=== PATIENT | female | born 1950 | race Caucasian/White ===

== ENCOUNTER 2017-08-20 18:36 | Emergency (ER) | payer MEDICARE, OTHER | END 2017-08-20 23:31 | disposition home or self-care (01) | LOC: EEVIPCON 18:36 → ERS 18:36 | DX: E11.65 Type 2 diabetes mellitus with hyperglycemia (principal); H43.393 Other vitreous opacities, bilateral; I48.91 Unspecified atrial fibrillation; I10 Essential (primary) hypertension; Z79.4 Long term (current) use of insulin; Z79.899 Other long term (current) drug therapy; Z79.82 Long term (current) use of aspirin | CPT/HCPCS: 36416; 99283 ==

== ENCOUNTER 2017-08-23 20:50 | Emergency (ER) | payer MEDICARE, OTHER ==
[2017-08-23 21:53] LABS: #Eosinphils 0.1 thou/uL (0.0-0.7); #Lymphocytes 1.6 thou/uL (1.20-3.40); #Neutrophils 7.6 thou/uL (1.40-6.50); %Basophils 0.4 % (0.0-1.0); %Lymphocytes 15.1 % (21.0-51.0); %Neutrophils 73.6 % (42.0-75.0); Hemoglobin 12.8 g/dL (12.0-16.0); Mean Corpuscular HGB CONC 33.3 g/dL (32.0-36.0); Mean Corpuscular Hemoglobin 31.8 pg (27.0-31.0); Mean Corpuscular Volume 95.3 fl (81.0-99.0); Mean Platelet Volume 7.3 fL (7.4-10.4); Platelet Count 192 thou/uL (130-400); RBC Distribution Width 12.4 % (11.5-14.5); Red Blood Cell (RBC) Count 4.04 mill/uL (4.20-5.40); White Blood Cell (WBC) Count 10.3 thou/uL (4.8-10.8)
[2017-08-23 22:00] LABS: Bilirubin Negative (Negative); Blood, Urine Trace (Negative); Clarity CLOUDY (Clear); Glucose, Urine (Dipstick) Negative (Negative); Leukocyte Small (Negative); Nitrite Positive (Negative); Protein, Urine (Dipstick) 30 mg/dL (Neg-Trace); Specific Gravity, Urine 1.022 (1.002-1.036)
[2017-08-23 22:01] LABS: Bacteria/HPF 4+ HPF (None Seen); Hyaline Casts/LPF 0-3 HYALINE CAST LPF (0-3 Hyaline); Pathc Cast-AUWi Flag 0.72 (0-2.49); Squamous Epithelial 0-3 HPF (0-3)
[2017-08-23 22:08] LABS: RBC/HPF 0-3 HPF (0-3); Yeast-All Forms None Seen HPF (None Seen)
--- NOTE | 2017-08-23 22:10 | RAD ---
PORTABLE CHEST: 08/23/2017 PROVIDED CLINICAL HISTORY: Abdominal pain. COMPARISON: 05/14/2016 FINDINGS: The cardiac and mediastinal silhouette is within normal limits. The lungs appear clear. There is no pleural fluid or pneumothorax apparent. IMPRESSION: No evidence for an acute cardiopulmonary process. POS: [facility]
[2017-08-23 22:15] LABS: ALT (SGPT) 28 U/L (8-55); AST (SGOT) 23 U/L (5-34); Albumin 3.7 g/dL (3.4-4.8); Alkaline Phosphatase 93 U/L (40-150); Anion Gap 13 mmol/L (10-20); BUN (Urea Nitrogen) 14 mg/dL (9.8-20.1); Calc. Creatinine Clearance 0 mL/min (70-130); Calcium 9.7 mg/dL (7.8-10.44); Carbon Dioxide 25 mmol/L (23-31); Chloride 98 mmol/L (98-107); Estimated GFR-MDRD 46; Globulin 4.5 g/dL (2.4-3.5); Glucose 245 mg/dL (80-115); Potassium 3.3 mmol/L (3.5-5.1); Protein, Total 8.2 g/dL (6.0-8.3); Sodium 133 mmol/L (136-145)
[2017-08-23] MEDS ORDERED: Acetaminophen 500 MG TAB ONE (22:18)
[2017-08-23] MEDS ORDERED: Pot Chloride/Pot Bicarb/Cit Ac 25 mEq Effervescent Tablet ONE (22:53)
[2017-08-23] MEDS ORDERED: cefTRIAXone\\ROCEPHIN 2 GM VIAL ONE (22:53)
== END 2017-08-24 00:45 | disposition home or self-care (01) ==
LOC: ERS 20:50
DX: N12 Tubulo-interstitial nephritis, not specified as acute or chronic (principal); I48.91 Unspecified atrial fibrillation; E11.9 Type 2 diabetes mellitus without complications; I10 Essential (primary) hypertension; Z79.84 Long term (current) use of oral hypoglycemic drugs; Z79.82 Long term (current) use of aspirin
CPT/HCPCS: 36416; 71045; 80053; 81003; 81015; 83605; 85025; 87040; 87077; 87149; 87186; 96361; 96365; J0696

== ENCOUNTER 2017-12-04 11:12 | Observation (INO) | payer MEDICARE, OTHER ==
[2017-12-04 11:42] LABS: #Basophils 0.1 thou/uL (0.0-0.2); #Eosinphils 0.2 thou/uL (0.0-0.7); #Lymphocytes 2.2 thou/uL (1.20-3.40); #Monocytes 0.9 thou/uL (0.11-0.59); #Neutrophils 7.3 thou/uL (1.40-6.50); %Basophils 0.6 % (0.0-1.0); %Eosinophils 2.2 % (0.0-10.0); %Lymphocytes 20.8 % (21.0-51.0); %Monocytes 8.4 % (0.0-10.0); %Neutrophils 68.1 % (42.0-75.0); Hemoglobin 13.1 g/dL (12.0-16.0); Mean Corpuscular HGB CONC 33.7 g/dL (32.0-36.0); Mean Corpuscular Hemoglobin 33.2 pg (27.0-31.0); Mean Corpuscular Volume 98.7 fL (78.0-98.0); Mean Platelet Volume 7.7 fL (7.4-10.4); Platelet Count 229 thou/uL (130-400); Red Blood Cell (RBC) Count 3.95 mill/uL (4.20-5.40); White Blood Cell (WBC) Count 10.7 thou/uL (4.8-10.8)
[2017-12-04 11:51] LABS: INR-International Normal Ratio 1.1; PTT 28.4 SEC (22.9-36.1); Prothrombin Time 13.9 SEC (12.0-14.7)
--- NOTE | 2017-12-04 12:07 | RAD ---
SINGLE VIEW OF THE CHEST: COMPARISON: 08/23/17. HISTORY: Shortness of breath. FINDINGS: A single view of the chest shows an enlarged but stable cardiomediastinal silhouette. There is no ev idence of consolidation, mass, or pleural effusion. The bones are unremarkable. IMPRESSION: Stable cardiomegaly without evidence of acute cardiopulmonary disease. POS: [facility]
[2017-12-04 12:13] LABS: ALT (SGPT) 42 U/L (8-55); AST (SGOT) 40 U/L (5-34); Alkaline Phosphatase 93 U/L (40-150); Anion Gap 16 mmol/L (10-20); BUN (Urea Nitrogen) 17 mg/dL (9.8-20.1); Bilirubin, Total 0.8 mg/dL (0.2-1.2); Calc. Creatinine Clearance 0 mL/min (70-130); Calcium 10.1 mg/dL (7.8-10.44); Carbon Dioxide 23 mmol/L (23-31); Chloride 105 mmol/L (98-107); Estimated GFR-MDRD 43; Globulin 4.8 g/dL (2.4-3.5); Glucose 158 mg/dL (80-115); Potassium 3.9 mmol/L (3.5-5.1); Protein, Total 8.8 g/dL (6.0-8.3); Sodium 140 mmol/L (136-145)
[2017-12-04 12:17] LABS: CKMB 1.1 ng/mL (0-6.6); Troponin I Less than 0.010 ng/mL (< 0.028)
--- NOTE | 2017-12-04 13:48 | PDOC.FPRHP ---
- History of Present Illness Chief Complaint: shortness of breath History of Present Illness: 66 year old female presents with shortness of breath and decreased energy x2 weeks. Patient reports she gets out of breath even with minimal exertion. Even endorses shortness of breath at rest. Last week, shortness of breath has worsened. She has been staying in the house all day because she cannot get around well. Sometimes associated with dizziness and nausea. Denies chest pain, arm pain, numbness, tingling, nausea, vomiting or palpitations. Has been checking BP, and has been running 121/50 this AM. Nothing new happened two weeks ago to trigger current respiratory status. Denies any cough, cold, congestion, rhinorhea. Denies changes in vision. Endorses ankle swelling for 2 days that has since resolved. Has increased urinary frequency which has been chronic. - Allergies/Adverse Reactions Allergies Allergy/AdvReac Type Severity Reaction Status Date / Time No Known Allergies Allergy Verified 12/04/17 15:07 - Home Medications Medication Instructions Recorded Confirmed Type Aspirin [Ecotrin Low Strength] 81 mg PO DAILY 10/21/13 12/04/17 History Flecainide Acetate 150 mg PO Q12HR 10/21/13 12/04/17 History Losartan Potassium 100 mg PO DAILY 10/21/13 12/04/17 History Pravastatin Sodium 80 mg PO HS 10/21/13 12/04/17 History Ranitidine HCl 150 mg PO DAILY 10/21/13 12/04/17 History Folic Acid [Folvite] 1 mg PO DAILY 03/12/14 12/04/17 History metFORMIN HCl 1,000 mg PO BID-WM 11/09/15 12/04/17 History Chlorthalidone 25 mg PO DAILY 12/04/17 12/04/17 History Insulin Glargine,Hum.Rec.Anlog 140 unit SQ 12/04/17 12/04/17 History [Faviola Proctor] - History PMHx: DM type II, HTN, CKD stage II, Urge incontinence, HLD, Hx of atrial fibrillation PSHx: 3 c/s, cholecystectomy, partial thyroidectomy, left knee surgery, right knee replacement FHx: Dad passed from [place] at age 92. Mom of colon cancer at age 82. Social: Hx of tobacco abuse. Quit 35 years ago. Smoked for 4 years. Endorses one drink a month. Denies drug use. - Review of Systems General: reports: fatigue. denies: fever/chills, weight/appetite/sleep changes Eyes: denies: vision changes ENT: denies: nasal congestion, rhinorrhea Respiratory: reports: shortness of breath, exercise intolerance. denies: cough , congestion Cardiovascular: reports: edema, paroxysmal nocturnal dyspnea. denies: chest pain, palpitation Gastrointestinal: reports: nausea. denies: vomiting, diarrhea, constipation, abdominal pain Genitourinary: reports: incontinence, polyuria. denies: dysuria Skin: denies: rashes, jaundice Musculoskeletal: denies: pain, stiffness Neurological: reports: weakness. denies: numbness, syncope, seizure Psychological: reports: anxiety. denies: depression - Vital signs BP: [145/62] HR: [67] RR: [19] Pox: [100]% on [RA] Wt: [112 kg] - Physical Exam Constitutional: NAD, awake, alert and oriented, well developed HEENT: PERRLA, EOMI Neck: no LAD Heart: RRR, normal S1/S2, no murmurs/rubs/gallops, pulses present, no edema Lungs: CTAB, no respiratory distress, good air movement, no rales/rhonchi, no wheezing, no retractions Abdomen: soft, non-tender, bowel sounds present, no masses/distention Musculoskeletal: normal structure, normal tone, ROM grossly normal Neurological: no focal deficit Heme/Lymphatic: no unusual bruising or bleeding Psychiatric: normal mood and affect, intact recent and remote memory FMR H&P: Results - Labs Result Diagrams: 12/04/17 11:30 12/04/17 11:30 Lab results: WBC 10.7 thou/uL (4.8-10.8) 12/04/17 11:30 Hgb 13.1 g/dL (12.0-16.0) 12/04/17 11:30 Hct 38.9 % (36.0-47.0) 12/04/17 11:30 MCV 98.7 fL (78.0-98.0) H 12/04/17 11:30 Plt Count 229 thou/uL (130-400) 12/04/17 11:30 Neutrophils % 68.1 % (42.0-75.0) 12/04/17 11:30 Sodium 140 mmol/L (136-145) 12/04/17 11:30 Potassium 3.9 mmol/L (3.5-5.1) 12/04/17 11:30 Chloride 105 mmol/L (98-107) 12/04/17 11:30 Carbon Dioxide 23 mmol/L (23-31) 12/04/17 11:30 BUN 17 mg/dL (9.8-20.1) 12/04/17 11:30 Creatinine 1.24 mg/dL (0.6-1.1) H 12/04/17 11:30 Glucose 158 mg/dL (80-115) H 12/04/17 11:30 Calcium 10.1 mg/dL (7.8-10.44) 12/04/17 11:30 Total Bilirubin 0.8 mg/dL (0.2-1.2) 12/04/17 11:30 AST 40 U/L (5-34) H 12/04/17 11:30 ALT 42 U/L (8-55) 12/04/17 11:30 Alkaline Phosphatase 93 U/L (40-150) 12/04/17 11:30 Creatine Kinase 90 U/L (29-168) 12/04/17 11:30 CK-MB (CK-2) 1.1 ng/mL (0-6.6) 12/04/17 11:30 B-Natriuretic Peptide 18.0 pg/mL (0-100) 12/04/17 11:30 Serum Total Protein 8.8 g/dL (6.0-8.3) H 12/04/17 11:30 Albumin 4.0 g/dL (3.4-4.8) 12/04/17 11:30 FMR H&P: A/P - Problem List (1) Atrial fibrillation, controlled Current Visit: No Status: Acute Code(s): I48.91 - UNSPECIFIED ATRIAL FIBRILLATION (2) Diabetes mellitus type 2, uncontrolled Current Visit: No Status: Acute (3) Hyperlipidemia Current Visit: No Status: Acute Code(s): E78.5 - HYPERLIPIDEMIA, UNSPECIFIED (4) Hypertension Current Visit: No Status: Acute Code(s): I10 - ESSENTIAL (PRIMARY) HYPERTENSION - Plan Possible new onset CHF - Differential also includes PE vs ACS vs arrythmia - CXR showed stable cardiomegaly, BNP 18 - BPs systolic 120-140s - Echo pending - Well's score for PE of 0, low risk. D-dimer pending to rule out PE. - trops neg x2, continue to trend - monitor on tele - EKG changes noted when compared to 08/24/17. Some ST elevations but not in contiguous leads. Cardiology saw patient in ED and do not believe this is a STEMI or that cath is needed at this time. - Appreciate cardiology, Dr. Thayer, recommendations DM2 - A1c 09/2017 of 8.3 - continue home metformin and Glargine - accuchecks with mild SSI CKD stage II - Cr 1.24, GFR 43 - will monitor BMP HLD - continue home pravastatin Hx of atrial fibrillation - continue home flecainide - NSR Hx of urge incontinence Ppx: Lovenox Diet: HH Dispo: admit to telemetry for observation FMR H&P: Upper Level - Pertinent history 66 year old female with 2 week history of shortness of breath and lower extremity swelling. Shortness of breath has worsened over the last week. Short of breath at rest. Patient reports this is new for her. She denies any palpitations or chest pain. Patient states that she had some lower extremity swelling that resolved. Pain was relieved with nitro given in ER. EKG was performed in ED which showed some ST elevation in aVR and V1. Dr. Armas came down to see patient and analyze EKG. He was not concerned about [place]. Patient stable. Trops negative. - Pertinent findings General: Alert and oriented x3. No acute distress. HEENT: No pharyngeal erythema. EOMI. PERRLA. No nystagmus. Cardio: RRR. No notable murmurs, although heart sounds distant. Resp: Clear to auscultation bilaterally. Satting 100% on RA. No acute distress. GEENA: No edema. Normal ROM. GI: Non-tender to palpation. Normoactive bowel sounds. - Plan Date/Time: 12/04/17 1343 I, [Muna Vasquez DO], have evaluated this patient and agree with findings/ plan as outlined by ad operations intern resident. Pertinent changes/additions are listed here. 66 year old female with 2 week history of shortness of breath 1. Possible new onset CHF - Stable cardiomegaly on CXR - BNP 18 - May be angina equivalent as it improved with nitro; continue nitro PRN - Echo pending; last echo done several years ago - No recent cardiology workup. Patient of Dr. Cat. - Consider stress test in AM pending echo results; if echo consistent with CHF, then may need cath as opposed to stress test - Trend trops (neg x3) - Strict I&O's - Daily weights - Fluid restriction at 1500 mL - D-dimer <.5 - Mg and Phosphorus pending - HgA1c 8.6 in 09/2017 - TSH pending 2. DM type II - Mild SSI - Continue home medications - Recent HgA1c - ACHS accuchecks 3. LAI on possible CKD stage II - Cr. 1.24 which is above baseline - Will continue to monitor - GFR up to 88 in the past. 43 today. 4. Hx of atrial fibrillation - In sinus rhythm - Continue to monitor on tele 5. HLD - Continue home medications 6. Urge Incontinence - Continue home medications Dispo: Stable. Anticipate LOS >48 hours. Obs/telemetry. Attending Addendum - Attending Addendum Date/Time: 12/04/172128 I personally evaluated the patient and discussed the management with Dr. Hunter I agree with the History, Examination, Assessment and Plan documented above with any addition or exceptions noted below- briefly this is a 66 yo female with h/o DM, HTN, HLD, and a-fib who presented with 2 week h/o increasing SOB. States that SOB worse with exertion but also having some at rest. Has had some associated nausea and dizziness. Denies any chest pain, abdominal pain, vomiting , or diaphoresis. No recent travel. Denies any leg swelling. PMH/PSH/All/Meds reviewed and agree with residents documentation. Afebrile VSS Exam repeated by me and agree with residents findings. Labs: troponin I<0.010 x2, D-dimer negative. A/P: 1) SOB- pt reports SOB improved after NTG. Possible anginal equivalent- continue serial cardiac enzymes. Check echo. Consider stress test vs cardiology consult. 2) DM- continue home meds. monitor accuchecks. 3) HTN- well controlled. continue home meds
[2017-12-04 14:51] LABS: Troponin I Less than 0.010 ng/mL (< 0.028)
[2017-12-04] MEDS ORDERED: Ondansetron ODT 4 MG TAB SL PRN (15:07)
[2017-12-04] MEDS ORDERED: Acetaminophen 325 MG TAB PO PRN (15:07)
[2017-12-04] MEDS ORDERED: Ondansetron HCl/PF 4 MG/2 ML Vial IVP PRN (15:07)
[2017-12-04 15:52] VITALS: BMI 36.6
[2017-12-04] MEDS ORDERED: HumaLOG 300 UNITS/3 ML VIAL SC PRN (17:00)
[2017-12-04] MEDS ORDERED: Dextrose 50% Abboject 50 ML SYRINGE SLOW IVP PRN (17:00)
[2017-12-04] MEDS ORDERED: Dextrose 5% in Water 1,000 ML IV PRN (17:00)
[2017-12-04] MEDS: metFORMIN 500 MG TAB PO SCH (17:19)
[2017-12-04 18:13] LABS: Troponin I Less than 0.010 ng/mL (< 0.028)
[2017-12-04 19:15] LABS: Magnesium 1.3 mg/dL (1.6-2.6); Phosphorus 3.2 mg/dL (2.3-4.7)
[2017-12-04] MEDS: Flecainide 50 MG TAB PO SCH (20:30)
[2017-12-04] MEDS: PRE FILLED SC SCH (20:30)
[2017-12-04] MEDS: INSULIN GLARGINE SC SCH (20:30)
[2017-12-04] MEDS: Pravastatin Sodium 40 MG TAB PO SCH (20:31)
[2017-12-04] MEDS ORDERED: INSULIN GLARGINE HUM REC ANLOG SQ SCH (21:00)
[2017-12-04] MEDS ORDERED: Nitroglycerin 2% Ointment 1 INCH/1 GM Packet TOP SCH (22:00)
[2017-12-05 04:45] LABS: #Eosinphils 0.3 thou/uL (0.0-0.7); #Lymphocytes 2.5 thou/uL (1.20-3.40); #Monocytes 0.8 thou/uL (0.11-0.59); #Neutrophils 5.8 thou/uL (1.40-6.50); %Basophils 0.5 % (0.0-1.0); %Eosinophils 3.5 % (0.0-10.0); %Lymphocytes 26.1 % (21.0-51.0); %Monocytes 8.6 % (0.0-10.0); %Neutrophils 61.3 % (42.0-75.0); Hemoglobin 11.3 g/dL (12.0-16.0); Mean Corpuscular HGB CONC 33.4 g/dL (32.0-36.0); Mean Platelet Volume 7.7 fL (7.4-10.4); Platelet Count 194 thou/uL (130-400); RBC Distribution Width 13.9 % (11.5-14.5); Red Blood Cell (RBC) Count 3.43 mill/uL (4.20-5.40); White Blood Cell (WBC) Count 9.5 thou/uL (4.8-10.8)
[2017-12-05 04:59] LABS: Anion Gap 12 mmol/L (10-20); BUN (Urea Nitrogen) 22 mg/dL (9.8-20.1); Calc. Creatinine Clearance 82 mL/min (70-130); Calcium 9.4 mg/dL (7.8-10.44); Carbon Dioxide 23 mmol/L (23-31); Chloride 107 mmol/L (98-107); Estimated GFR-MDRD 46; Glucose 103 mg/dL (80-115); Potassium 3.3 mmol/L (3.5-5.1); Sodium 139 mmol/L (136-145)
[2017-12-05] MEDS ORDERED: Nitroglycerin 0.4 MG TAB (25 Tab Bottle) SL PRN (06:55)
[2017-12-05] MEDS ORDERED: Magnesium Oxide 400 MG TAB PO SCH (07:00)
[2017-12-05] MEDS ORDERED: Potassium Chloride 20 MEQ TAB PO SCH (07:00)
[2017-12-05] MEDS: Losartan 25 MG TAB PO SCH (08:20)
[2017-12-05] MEDS: Famotidine 20 MG TAB PO SCH (08:20)
[2017-12-05] MEDS: Folic Acid 1 MG TAB PO SCH (08:20)
[2017-12-05] MEDS: Chlorthalidone 25 MG TAB PO SCH (08:20)
[2017-12-05] MEDS: Flecainide 50 MG TAB PO SCH ×2 (08:20→21:10)
[2017-12-05] MEDS: Enoxaparin Sodium 40 MG/0.4 ML SYRINGE SC SCH (08:21)
--- NOTE | 2017-12-05 12:19 | PDOC.FM ---
- Subjective Subjective: Patient doing well this AM. No significant overnight events. Patient states shortness of breath improved with nitro. She has been getting around better this morning. She denies any chest pain, diaphoresis, N/V. - Objective MAR Reviewed: Yes Vital Signs & Weight: Vital Signs (12 hours) Temp Pulse Resp BP Pulse Ox 12/05/17 08:00 97.7 F 66 16 12/05/17 07:50 98.6 F 67 20 134/64 93 L 12/05/17 03:00 97.7 F 66 16 153/67 H 93 L Weight Weight 111.584 kg I&O: 12/04/17 12/05/17 12/06/17 06:59 06:59 06:59 Intake Total 810 Output Total 1000 Balance -190 Result Diagrams: 12/05/17 04:27 12/05/17 04:27 EKG Reviewed by me: Yes Radiology Reviewed by me: Yes <Muna Vasquez - Last Filed: 12/05/17 12:16> - Objective Vital Signs & Weight: Vital Signs (12 hours) Temp Pulse Resp BP Pulse Ox 12/05/17 08:00 97.7 F 66 16 12/05/17 07:50 98.6 F 67 20 134/64 93 L 12/05/17 03:00 97.7 F 66 16 153/67 H 93 L Weight Weight 111.584 kg I&O: 12/04/17 12/05/17 12/06/17 06:59 06:59 06:59 Intake Total 810 Output Total 1000 Balance -190 Result Diagrams: 12/05/17 04:27 12/05/17 04:27 <Segundo Acosta - Last Filed: 12/05/17 12:42> Phys Exam - Physical Examination Constitutional: NAD HEENT: moist MMs, sclera anicteric Neck: supple faint bibasliar crackles Cardiovascular: RRR, no significant murmur Gastrointestinal: soft, no distention, positive bowel sounds Musculoskeletal: no edema, pulses present Neurological: non-focal Psychiatric: normal affect, A&O x 3 Skin: no rash, cap refill <2 seconds <Muna Vasquez - Last Filed: 12/05/17 12:16> Dx/Plan (1) Shortness of breath Code(s): R06.02 - SHORTNESS OF BREATH Status: Acute (2) Atrial fibrillation, controlled Code(s): I48.91 - UNSPECIFIED ATRIAL FIBRILLATION Status: Acute (3) Diabetes mellitus type 2, uncontrolled Status: Acute (4) Hyperlipidemia Code(s): E78.5 - HYPERLIPIDEMIA, UNSPECIFIED Status: Acute (5) Hypertension Code(s): I10 - ESSENTIAL (PRIMARY) HYPERTENSION Status: Acute - Plan Plan: 66 year old female with 2 week history of shortness of breath 1. Possible new onset CHF - Stable cardiomegaly on CXR - BNP 18; still want to rule out CHF - May be angina equivalent as it improved with nitro; continue nitro PRN - Echo pending; last echo done several years ago - No recent cardiology workup. Patient of Dr. Cat. - Consider stress test pending echo results; if echo consistent with CHF, then may need cath as opposed to stress test - CE's neg x3 - Strict I&O's - Daily weights - Fluid restriction at 1500 mL - D-dimer <.5; no concern for PE - Mg low, replace - HgA1c 8.6 in 09/2017 - TSH wnl 2. DM type II - Mild SSI - Continue home medications - Recent HgA1c - ACHS accuchecks 3. LAI on possible CKD stage II - Cr. 1.24 --> 1.16 which is above baseline - Will continue to monitor - GFR up to 88 in the past. 46 today. 4. Hx of atrial fibrillation - In sinus rhythm - Continue to monitor on tele 5. HLD - Continue home medications 6. Urge Incontinence - Continue home medications Dispo: Stable. Pending echo results for further management. <Muna Vasquez - Last Filed: 12/05/17 12:16> Attending Addendum - Attending Addendum Date/Time: 12/05/17 1241 I personally evaluated the patient and discussed the management with Dr. Vasquez. I agree with and repeated the History, Examination, Assessment and Plan documented above with any addition or exceptions noted below. Unremarkable exam. Story c/f cardiac origin of CP. Will plan on d/w cards p echo. Low suspicion for PE at this time. <Segundo Acosta - Last Filed: 12/05/17 12:42>
[2017-12-05] MEDS: metFORMIN 500 MG TAB PO SCH ×2 (13:27→18:19)
[2017-12-05] MEDS: Pravastatin Sodium 40 MG TAB PO SCH (21:10)
[2017-12-05] MEDS: INSULIN GLARGINE SC SCH (21:11)
[2017-12-05] MEDS: PRE FILLED SC SCH (21:11)
[2017-12-06 05:02] LABS: #Basophils 0.1 thou/uL (0.0-0.2); #Eosinphils 0.3 thou/uL (0.0-0.7); #Neutrophils 5.8 thou/uL (1.40-6.50); %Basophils 0.6 % (0.0-1.0); %Eosinophils 3.5 % (0.0-10.0); %Lymphocytes 21.7 % (21.0-51.0); %Monocytes 10.8 % (0.0-10.0); %Neutrophils 63.4 % (42.0-75.0); Hemoglobin 12.2 g/dL (12.0-16.0); Mean Corpuscular HGB CONC 33.7 g/dL (32.0-36.0); Mean Corpuscular Hemoglobin 33.5 pg (27.0-31.0); Mean Corpuscular Volume 99.5 fL (78.0-98.0); Mean Platelet Volume 7.5 fL (7.4-10.4); Platelet Count 198 thou/uL (130-400); RBC Distribution Width 13.9 % (11.5-14.5); Red Blood Cell (RBC) Count 3.64 mill/uL (4.20-5.40); White Blood Cell (WBC) Count 9.2 thou/uL (4.8-10.8)
[2017-12-06 05:03] LABS: Anion Gap 13 mmol/L (10-20); BUN (Urea Nitrogen) 21 mg/dL (9.8-20.1); Calc. Creatinine Clearance 77 mL/min (70-130); Calcium 9.7 mg/dL (7.8-10.44); Carbon Dioxide 24 mmol/L (23-31); Chloride 106 mmol/L (98-107); Estimated GFR-MDRD 43; Glucose 97 mg/dL (80-115); Potassium 3.5 mmol/L (3.5-5.1); Sodium 139 mmol/L (136-145)
[2017-12-06] MEDS ORDERED: Clopidogrel Bisulfate 75 MG TAB ONE (08:40)
[2017-12-06] MEDS: Losartan 25 MG TAB PO SCH (08:47)
[2017-12-06] MEDS: Enoxaparin Sodium 40 MG/0.4 ML SYRINGE SC SCH (08:47)
[2017-12-06] MEDS: Flecainide 50 MG TAB PO SCH ×2 (08:49→20:40)
[2017-12-06] MEDS: Famotidine 20 MG TAB PO SCH (08:50)
[2017-12-06] MEDS: Folic Acid 1 MG TAB PO SCH (08:50)
[2017-12-06] MEDS: metFORMIN 500 MG TAB PO SCH ×2 (08:50→19:40)
[2017-12-06] MEDS: Chlorthalidone 25 MG TAB PO SCH (08:50)
--- NOTE | 2017-12-06 12:51 | PDOC.FM ---
- Subjective Subjective: Patient doing extremely well this AM. No significant overnight events. Patient states she is no longer short of breath. The lasix and nitro really helped. She is in good spirits. - Objective MAR Reviewed: Yes Vital Signs & Weight: Vital Signs (12 hours) Temp Pulse Resp BP Pulse Ox 12/06/17 03:25 98.1 F 64 18 135/60 94 L Weight Weight 112.128 kg I&O: 12/05/17 12/06/17 12/07/17 06:59 06:59 06:59 Intake Total 810 990 Output Total 1000 900 Balance -190 90 Result Diagrams: 12/06/17 04:28 12/06/17 04:28 EKG Reviewed by me: Yes Radiology Reviewed by me: Yes <Muna Vasquez - Last Filed: 12/06/17 12:52> - Objective Vital Signs & Weight: Vital Signs (12 hours) Temp Pulse Resp BP Pulse Ox 12/06/17 07:45 98.1 F 64 18 158/69 H 94 L Weight Weight 112.128 kg I&O: 12/05/17 12/06/17 12/07/17 06:59 06:59 06:59 Intake Total 810 990 Output Total 1000 900 Balance -190 90 Result Diagrams: 12/06/17 04:28 12/06/17 04:28 <Segundo Acosta - Last Filed: 12/06/17 16:17> Phys Exam - Physical Examination Constitutional: NAD HEENT: moist MMs, sclera anicteric Respiratory: no wheezing, clear to auscultation bilateral Cardiovascular: RRR, no significant murmur Gastrointestinal: soft, non-tender Musculoskeletal: pulses present Neurological: non-focal Psychiatric: normal affect, A&O x 3 Skin: no rash, cap refill <2 seconds <Muna Vasquez - Last Filed: 12/06/17 12:52> Dx/Plan (1) Shortness of breath Code(s): R06.02 - SHORTNESS OF BREATH Status: Acute (2) Atrial fibrillation, controlled Code(s): I48.91 - UNSPECIFIED ATRIAL FIBRILLATION Status: Acute (3) Diabetes mellitus type 2, uncontrolled Status: Acute (4) Hyperlipidemia Code(s): E78.5 - HYPERLIPIDEMIA, UNSPECIFIED Status: Acute (5) Hypertension Code(s): I10 - ESSENTIAL (PRIMARY) HYPERTENSION Status: Acute - Plan Plan: 66 year old female with 2 week history of shortness of breath 1. Possible new onset CHF - Stable cardiomegaly on CXR - BNP 18; still want to rule out CHF - May be angina equivalent as it improved with nitro; continue nitro PRN - Echo pending; last echo done several years ago - Echo has yet to be read - No recent cardiology workup. Patient of Dr. Cat. - Consider stress test pending echo results; if echo consistent with CHF, then may need cath as opposed to stress test - CE's neg x3 - Strict I&O's - Daily weights - Fluid restriction at 1500 mL - D-dimer <.5; no concern for PE - Mg low, replace - HgA1c 8.6 in 09/2017 - TSH wnl - May consider stress test this afternoon as echo is still pending 2. DM type II - Mild SSI - Continue home medications - Recent HgA1c - ACHS accuchecks 3. LAI on possible CKD stage II - Cr. 1.24 --> 1.16--> 1.24 which is above baseline - Will continue to monitor - GFR up to 88 in the past. 4. Hx of atrial fibrillation - In sinus rhythm - Continue to monitor on tele 5. HLD - Continue home medications 6. Urge Incontinence - Continue home medications Dispo: Stable. Pending echo results for further management. May consider stressing this afternoon if echo has not resulted. <Muna Vasquez - Last Filed: 12/06/17 12:52> Attending Addendum - Attending Addendum Date/Time: 12/06/17 3867 I personally evaluated the patient and discussed the management with Dr. Vasquez. I agree with and repeated the History, Examination, Assessment and Plan documented above with any addition or exceptions noted below. No cp, sob. No n/v/diaphoresis. No cough, hemoptysis. Unremarkable exam. Stress test. For some reason the TTE is not back. Will call. <Segundo Acosta - Last Filed: 12/06/17 16:17>
--- NOTE | 2017-12-06 19:58 | CON ---
DATE OF CONSULTATION: 12/06/2017 DATE OF CONSULTATION: Shortness of breath. PRIMARY OUTSIDE MEDICAL SALES REPRESENTATIVE: Dr. Alonzo Cat. HISTORY OF PRESENT ILLNESS: Ms. Lyle is a 66-year-old woman. She came to the hospital 2 days ago with shortness of breath. There was some concern about pulmonary embolism and therefore, a D-dimer was drawn that was normal. There is also some concern this could have been an acute OK. Dr. Peter olmstead apparently was shown the EKG. Thought it was not an acute OK. Therefore, she was admitted to the hospital for further evaluation. The patient has been doing well since then with no recurrent shortn ess of breath. Her EKG does show a new right bundle branch block. PAST MEDICAL HISTORY: She has a history of paroxysmal atrial fibrillation. MEDICATIONS AT HOME: Include, 1. Flecainide. She is on a dose of 150 mg every 12 hours. 2. Losartan. 3. Metformin. 4. Insulin. 5. Chlorthalidone. 6. Ranitidine. ALLERGIES: None known. SOCIAL HISTORY: No alcohol or tobacco. PHYSICAL EXAMINATION: GENERAL: This is a pleasant 66-year-old woman in no distress. VITAL SIGNS: Blood pressure 158/69, pulse 60, it is regular. She is 5 foot 9 inches tall, 247 jair nds. LUNGS: Clear. CARDIAC: Normal S1, normal S2. ABDOMEN: Obese, nontender. EXTREMITIES: There is no edema. ASSESSMENT: 1. New right bundle branch block. 2. Transient shortness of breath of uncertain etiology. 3. Echocardiogram showed normal left ventricular systolic function with some diastolic dysfunction. PERTINENT LABORATORY DATA: BNP normal at 18. Troponin was negative. ASSESSMENT: 1. Shortness of breath, transient of uncertain etiology. 2. New right bundle branch block. 3. History of atrial fibrillation. PLAN: Stress testing will be arranged due to her body size 2-day protocol.
[2017-12-06] MEDS: Pravastatin Sodium 40 MG TAB PO SCH (20:40)
[2017-12-06] MEDS: PRE FILLED SC SCH (20:41)
[2017-12-06] MEDS: INSULIN GLARGINE SC SCH (20:41)
[2017-12-07 05:02] LABS: #Basophils 0.1 thou/uL (0.0-0.2); #Eosinphils 0.3 thou/uL (0.0-0.7); #Lymphocytes 2.7 thou/uL (1.20-3.40); #Monocytes 0.9 thou/uL (0.11-0.59); #Neutrophils 6.5 thou/uL (1.40-6.50); %Basophils 0.5 % (0.0-1.0); %Eosinophils 2.5 % (0.0-10.0); %Lymphocytes 25.8 % (21.0-51.0); %Monocytes 8.6 % (0.0-10.0); %Neutrophils 62.6 % (42.0-75.0); Hemoglobin 11.8 g/dL (12.0-16.0); Mean Corpuscular Hemoglobin 33.7 pg (27.0-31.0); Mean Corpuscular Volume 99.1 fL (78.0-98.0); Mean Platelet Volume 7.7 fL (7.4-10.4); Platelet Count 199 thou/uL (130-400); RBC Distribution Width 13.7 % (11.5-14.5); White Blood Cell (WBC) Count 10.3 thou/uL (4.8-10.8)
[2017-12-07 05:14] LABS: Anion Gap 12 mmol/L (10-20); BUN (Urea Nitrogen) 24 mg/dL (9.8-20.1); Calc. Creatinine Clearance 84 mL/min (70-130); Calcium 9.5 mg/dL (7.8-10.44); Carbon Dioxide 25 mmol/L (23-31); Chloride 104 mmol/L (98-107); Estimated GFR-MDRD 47; Glucose 80 mg/dL (80-115); Potassium 3.5 mmol/L (3.5-5.1); Sodium 137 mmol/L (136-145)
--- NOTE | 2017-12-07 06:28 | PDOC.FM ---
- Subjective Subjective: Patient doing well this AM. No significant overnight events. She denies shortness of breath, chest pain, N/V/D. No concerns. - Objective MAR Reviewed: Yes Vital Signs & Weight: Vital Signs (12 hours) Temp Pulse Resp BP BP BP Pulse Ox 12/07/17 03:43 98.7 F 59 L 16 112/54 L 94 L 12/07/17 00:06 98.4 F 63 18 119/70 96 12/06/17 20:51 97.7 F 70 18 127/66 96 12/06/17 20:05 97.7 F 70 18 Weight Weight 112.037 kg I&O: 12/05/17 12/06/17 12/07/17 06:59 06:59 06:59 Intake Total 810 990 660 Output Total 1000 900 400 Balance -190 90 260 Result Diagrams: 12/07/17 04:27 12/07/17 04:27 EKG Reviewed by me: Yes Radiology Reviewed by me: Yes <Muna Vasquez - Last Filed: 12/07/17 09:08> - Objective Vital Signs & Weight: Vital Signs (12 hours) Temp Pulse Resp BP BP BP Pulse Ox 12/07/17 11:47 98.5 F 63 18 130/66 100 12/07/17 08:00 97.8 F 58 L 18 12/07/17 07:31 97.8 F 58 L 18 138/64 97 12/07/17 03:43 98.7 F 59 L 16 112/54 L 94 L Weight Weight 112.037 kg I&O: 12/06/17 12/07/17 12/08/17 06:59 06:59 06:59 Intake Total 990 660 Output Total 900 400 Balance 90 260 Result Diagrams: 12/07/17 04:27 12/07/17 04:27 <Segundo Acosta - Last Filed: 12/07/17 13:06> Phys Exam - Physical Examination Constitutional: NAD HEENT: moist MMs, sclera anicteric Neck: supple Respiratory: no wheezing, clear to auscultation bilateral Cardiovascular: RRR, no significant murmur Gastrointestinal: soft, non-tender Musculoskeletal: no edema, pulses present Neurological: non-focal Psychiatric: normal affect, A&O x 3 Skin: no rash, normal turgor, cap refill <2 seconds <Muna Vasquez - Last Filed: 12/07/17 09:08> Dx/Plan (1) Shortness of breath Code(s): R06.02 - SHORTNESS OF BREATH Status: Resolved (2) Atrial fibrillation, controlled Code(s): I48.91 - UNSPECIFIED ATRIAL FIBRILLATION Status: Resolved (3) Diabetes mellitus type 2, uncontrolled Status: Chronic (4) Hyperlipidemia Code(s): E78.5 - HYPERLIPIDEMIA, UNSPECIFIED Status: Chronic (5) Hypertension Code(s): I10 - ESSENTIAL (PRIMARY) HYPERTENSION Status: Chronic - Plan Plan: 66 year old female with 2 week history of shortness of breath 1. New onset HFpEF - Stable cardiomegaly on CXR - May be angina equivalent as it improved with nitro; continue nitro PRN - Echo showed HFpEF (1/3 diastolic dysfunction) - No recent cardiology workup. Patient of Dr. Cat. - Dr. Sethi read echo and advised patient proceed with 2 day stress; first day of stress done yesterday. - CE's neg x3 - Strict I&O's - Daily weights - Fluid restriction at 1500 mL - D-dimer <.5; no concern for PE - Mg replaced - HgA1c 8.6 in 09/2017 - TSH wnl 2. DM type II - Mild SSI - Continue home medications - Recent HgA1c - ACHS accuchecks 3. LAI on possible CKD stage II - Cr. 1.24 --> 1.16--> 1.24 --> 1.14 - Will continue to monitor - GFR up to 88 in the past. 4. Hx of atrial fibrillation - In sinus rhythm - Continue to monitor on tele 5. HLD - Continue home medications 6. Urge Incontinence - Continue home medications Dispo: Stable. On day 2 of stress test. Further management pending stress test results. <Muna Vasquez - Last Filed: 12/07/17 09:08> Attending Addendum - Attending Addendum Date/Time: 12/07/17 5626 I personally evaluated the patient and discussed the management with Dr. Vasquez. I agree with and repeated the History, Examination, Assessment and Plan documented above with any addition or exceptions noted below. Pt post stress and waiting on result. Had some significant chest discomfort during the procedure and similar shortness of breath as on presentation. Will d /w cardiology. <Segundo Acosta - Last Filed: 12/07/17 13:06>
[2017-12-07] MEDS ORDERED: ISOVUE-370 76%-LOCM 1 ML ONE (07:24)
[2017-12-07] MEDS: Famotidine 20 MG TAB PO SCH (08:23)
[2017-12-07] MEDS: Chlorthalidone 25 MG TAB PO SCH (08:23)
[2017-12-07] MEDS: Flecainide 50 MG TAB PO SCH (08:23)
[2017-12-07] MEDS: Enoxaparin Sodium 40 MG/0.4 ML SYRINGE SC SCH (08:23)
[2017-12-07] MEDS: metFORMIN 500 MG TAB PO SCH (08:23)
[2017-12-07] MEDS: Folic Acid 1 MG TAB PO SCH (08:24)
[2017-12-07] MEDS: Losartan 25 MG TAB PO SCH (08:24)
--- NOTE | 2017-12-07 11:57 | NM ---
CARDIAC SPECT WITH EF AND WALL MOTION: HISTORY: A 66-year-old female with a history of chest pain, atrial fibrillation, hypertension, and diabetes me llitus. TECHNIQUE: This is an adenosine sestamibi study. The patient was injected with 28.8 millicuries of technetium 99m sestamibi, intravenously, for stress images. The patient was injected with 30.1 millicuries of technetium 99m sestamibi, intravenously, for restin g images. FINDINGS: Multiple SPECT images in the short axis, vertical long axis, and horizontal long axis demonstrated no scan evidence for infarct or ischemia. TID: 1.23 LHR: 0.30 EDV: 115 mL EF: 61% MYOCARDIAL PERFUSION WALL MOTION: Wall motion is normal. IMPRESSION: Unremarkable cardiac single-photon emission computed tomography with ejection fraction and wall motio n. POS: [facility]
[2017-12-07] MEDS ORDERED: ADENOSINE 60 MG/20 ML VIAL ONE (13:53)
--- NOTE | 2017-12-07 14:12 | PDOC.CTH ---
Cardiology Progress Note - Subjective Pt. seen ans aaron. by me. She denies complaints at this time. No overnight events. - Objective Vital Signs Temp Pulse Resp BP BP BP Pulse Ox 12/07/17 11:47 98.5 F 63 18 130/66 100 12/07/17 08:00 97.8 F 58 L 18 12/07/17 07:31 97.8 F 58 L 18 138/64 97 12/07/17 03:43 98.7 F 59 L 16 112/54 L 94 L Weight 247 lb 12/06/17 12/07/17 12/08/17 06:59 06:59 06:59 Intake Total 990 660 Output Total 900 400 Balance 90 260 - Physical Examination General/Neuro: alert & oriented x3 Neck: carotid US brisk Lungs: CTA Heart: RRR Abdomen: NT/ND Extremities: other: (no edema) - Labs Result Diagrams: 12/07/17 04:27 12/07/17 04:27 Troponin/CKMB CK-MB (CK-2) 1.1 ng/mL (0-6.6) 12/04/17 11:30 Troponin I Less than 0.010 ng/mL (< 0.028) 12/04/17 17:34 - Assessment/Plan 1. CHF: diastolic dysfunction. Continue present meds. 2. RBBB- new. Stress test is neg. This may be secondary to pulmonary issues. The D-dimer was not elevated but her symptoms and presentation are suspicious for a PE. May consider pulmonary CTA to rule out PE. If she is able to walk in the halls without dyspnea then unlikely and she could be d/c'd to home and f/u as an outpt. She had a cardiac cath 2009 which revealed only mild plaque in the LAD. 3. DM: per primary service. 4. HTN.Stable 5. Hx. of Afib. Maintaining NSR. Continue Flecainide. Overall cardiac status is stable. To be on the safe side I would add OAC for a month or at least. Review of Systems - Review of Systems EENTM: reports: no symptoms reported Respiratory: reports: no symptoms reported Cardiac (ROS): reports: no symptoms reported ABD/GI: reports: no symptoms reported Musculoskeletal: reports: no symptoms reported Skin: reports: no symptoms reported Neurological: reports: no symptoms reported
[2017-12-07 16:05] VITALS: BP 153/70; TEMP 98.4
--- NOTE | 2017-12-07 16:08 | CT ---
CT ANGIOGRAM OF CHEST WITH CONTRAST PER PULMONARY EMBOLISM 12/07/17 HISTORY: Chest pain. Concern for embolism. COMPARISON: Chest radiograph 12/04/17. CT angiogram of the chest in 2010. TECHNIQUE: CT angiogram of the chest performed after the intravenous administration of contrast. 3D rendering p rovided. Pulmonary trunk size measures just under 3 cm, upper limits of normal. Mildly enlarged media stinal lymph nodes similar to the comparison examination likely reactive in nature. Heart size is enl arged. There is no proximal segmental pulmonary arterial filling defect. Asymmetric thickening left adrenal gland, larger than the right, unchanged since 2011. No focal air space consolidation, pneumothorax or effusion. No displaced rib fracture. IMPRESSION: 1. No proximal segmental pulmonary arterial filling defect. 2. No acute intrathoracic abnormality. POS: [facility]ER
--- NOTE | 2017-12-08 20:32 | EKG ---
Test Reason : SOB Blood Pressure : / mmHG Vent. Rate : 066 BPM Atrial Rate : 066 BPM P-R Int : 206 ms QRS Dur : 082 ms QT Int : 486 ms P-R-T Axes : 081 046 044 degrees QTc Int : 509 ms Normal sinus rhythm Anteroseptal infarct , possibly acute Consider right ventricular involvement in acute inferior infarct Significant changes from 25-AUG-2007 Confirmed by CONRAD CASIANO, GORGE ([id number]), tape editor THOMPSON CHAN ([id number]) on 12/08/2017 8:32:37 PM Referred By: Confirmed By:GORGE MARTINES MD
== END 2017-12-07 17:33 | disposition home or self-care (01) ==
LOC: ERS 11:12 → 2SW 14:46 → INTOOBSV 15:01
PROVIDERS: ADMIT Family Medicine; ATTEND Family Medicine
DX: R06.02 Shortness of breath (principal); I45.10 Unspecified right bundle-branch block; I48.91 Unspecified atrial fibrillation; E11.22 Type 2 diabetes mellitus with diabetic chronic kidney disease; I13.0 Hypertensive heart and chronic kidney disease with heart failure and stage 1 through stage 4 chronic kidney disease, or unspecified chronic kidney disease; N18.2 Chronic kidney disease, stage 2 (mild); I50.30 Unspecified diastolic (congestive) heart failure; Z79.4 Long term (current) use of insulin; Z79.899 Other long term (current) drug therapy
CPT/HCPCS: 71045; 71275; 78452; 80048 ×3; 82550; 82553; 82962 ×4; 83735; 83880; 84100; 84484 ×2; 85025 ×3; 85379; 85610; 85730; 86850; 86900; 86901; 93005; 93017; 93306; 96372 ×2; 99285; A9500; G0378 ×3; 36415; 36416; 80053; 84443; J0153; J1644; J1650

== ENCOUNTER 2018-01-29 20:30 | Outpatient (CLI) | payer MEDICARE, OTHER | END 2018-01-29 20:31 | disposition home or self-care (01) | LOC: SLEEPLAB 20:30 | PROVIDERS: ATTEND Student in an Organized Health Care Education/Training Program | DX: G47.33 Obstructive sleep apnea (adult) (pediatric) (principal); R06.83 Snoring; E66.9 Obesity, unspecified; I10 Essential (primary) hypertension; E11.9 Type 2 diabetes mellitus without complications; Z68.36 Body mass index [BMI] 36.0-36.9, adult | CPT/HCPCS: 95810 ==

== ENCOUNTER 2018-02-27 19:30 | Outpatient (CLI) | payer MEDICARE, OTHER | END 2018-02-27 19:31 | disposition home or self-care (01) | LOC: SLEEPLAB 19:30 | PROVIDERS: ATTEND Student in an Organized Health Care Education/Training Program | DX: G47.33 Obstructive sleep apnea (adult) (pediatric) (principal); R06.83 Snoring; I10 Essential (primary) hypertension; E11.9 Type 2 diabetes mellitus without complications; G47.10 Hypersomnia, unspecified; E66.9 Obesity, unspecified; Z68.36 Body mass index [BMI] 36.0-36.9, adult | CPT/HCPCS: 95811 ==

== ENCOUNTER 2018-04-17 08:33 | Outpatient (CLI) | payer MEDICARE, OTHER ==
--- NOTE | 2018-04-17 09:10 | RAD ---
CHEST TWO VIEWS: Comparison: 12-14-17 History: Shortness of breath. FINDINGS: Normal cardiac silhouette. The pulmonary vessels and hilum are normal. Costophrenic angles are clear. No mass. No consolidation. Chronic changes in the lung parenchyma are noted. No pneumothorax or osse ous abnormality. IMPRESSION: No acute cardiopulmonary process POS: [facility]
== END 2018-04-17 08:34 | disposition home or self-care (01) ==
LOC: RAD 08:33
PROVIDERS: ATTEND Internal Medicine Critical Care Medicine
DX: R06.00 Dyspnea, unspecified (principal)
CPT/HCPCS: 71046

== ENCOUNTER 2018-08-20 16:53 | Emergency (ER) | payer MEDICARE, OTHER ==
[2018-08-20 17:37] LABS: Bilirubin Negative (Negative); Blood, Urine Moderate (Negative); Clarity CLOUDY (Clear); Glucose, Urine (Dipstick) Negative (Negative); Leukocyte Large (Negative); Nitrite Negative (Negative); Protein, Urine (Dipstick) 30 mg/dL (Neg-Trace); Specific Gravity, Urine 1.018 (1.002-1.036)
[2018-08-20 17:39] LABS: Bacteria/HPF 4+ HPF (None Seen); Hyaline Casts/LPF 4-6 HYALINE CAST LPF (0-3 Hyaline); Pathc Cast-AUWi Flag 1.76 (0-2.49); RBC/HPF 21-50 HPF (0-3); Squamous Epithelial 0-3 HPF (0-3)
[2018-08-20 18:13] LABS: #Basophils 0.1 thou/uL (0.0-0.2); #Eosinphils 0.3 thou/uL (0.0-0.7); #Lymphocytes 2.2 thou/uL (1.20-3.40); #Monocytes 0.8 thou/uL (0.11-0.59); #Neutrophils 7.2 thou/uL (1.40-6.50); %Basophils 0.5 % (0.0-1.0); %Eosinophils 2.9 % (0.0-10.0); %Lymphocytes 21.1 % (21.0-51.0); %Monocytes 7.1 % (0.0-10.0); %Neutrophils 68.4 % (42.0-75.0); Hemoglobin 11.9 g/dL (12.0-16.0); Mean Corpuscular HGB CONC 32.6 g/dL (32.0-36.0); Mean Corpuscular Hemoglobin 30.8 pg (27.0-31.0); Mean Corpuscular Volume 94.7 fL (78.0-98.0); Mean Platelet Volume 8.1 fL (7.4-10.4); Platelet Count 189 thou/uL (130-400); RBC Distribution Width 13.4 % (11.5-14.5); Red Blood Cell (RBC) Count 3.86 mill/uL (4.20-5.40); White Blood Cell (WBC) Count 10.5 thou/uL (4.8-10.8)
--- NOTE | 2018-08-20 18:17 | RAD ---
PORTABLE CHEST: 08/20/18 PROVIDED CLINICAL HISTORY: Dehydration, pain. FINDINGS: Comparison is made with the study dated 04/17/18. The cardiac silhouette remains enlarged. No focal consolidation, pleural fluid or pneumothorax appare nt. IMPRESSION: Cardiomegaly without evidence for an acute cardiopulmonary process. POS: [facility]
[2018-08-20 18:41] LABS: ALT (SGPT) 34 U/L (8-55); AST (SGOT) 33 U/L (5-34); Albumin 3.9 g/dL (3.4-4.8); Alkaline Phosphatase 118 U/L (40-150); Anion Gap 15 mmol/L (10-20); BUN (Urea Nitrogen) 26 mg/dL (9.8-20.1); Bilirubin, Total 0.5 mg/dL (0.2-1.2); Calc. Creatinine Clearance 0 mL/min (70-130); Carbon Dioxide 24 mmol/L (23-31); Chloride 104 mmol/L (98-107); Estimated GFR-MDRD 43; Globulin 4.2 g/dL (2.4-3.5); Glucose 220 mg/dL (80-115); Potassium 3.8 mmol/L (3.5-5.1); Protein, Total 8.1 g/dL (6.0-8.3); Sodium 139 mmol/L (136-145)
== END 2018-08-20 19:37 | disposition home or self-care (01) ==
LOC: ERS 16:53
DX: N39.0 Urinary tract infection, site not specified (principal); I48.91 Unspecified atrial fibrillation; E11.9 Type 2 diabetes mellitus without complications; I10 Essential (primary) hypertension; Z79.82 Long term (current) use of aspirin; Z79.84 Long term (current) use of oral hypoglycemic drugs
CPT/HCPCS: 71045; 80053; 81003; 81015; 83880; 84484; 85025; 87077; 87086; 87186; 93005; 96360

== ENCOUNTER 2018-09-13 10:20 | Outpatient (CLI) | payer MEDICARE, OTHER ==
[2018-09-13 11:18] LABS: #Basophils 0.1 thou/uL (0.0-0.2); #Eosinphils 0.4 thou/uL (0.0-0.7); #Lymphocytes 1.9 thou/uL (1.20-3.40); #Monocytes 0.8 thou/uL (0.11-0.59); #Neutrophils 6.2 thou/uL (1.40-6.50); %Basophils 0.6 % (0.0-1.0); %Eosinophils 4.7 % (0.0-10.0); %Lymphocytes 20.2 % (21.0-51.0); %Monocytes 8.3 % (0.0-10.0); %Neutrophils 66.2 % (42.0-75.0); Hemoglobin 11.5 g/dL (12.0-16.0); Mean Corpuscular Hemoglobin 32.8 pg (27.0-31.0); Mean Corpuscular Volume 93.8 fL (78.0-98.0); Mean Platelet Volume 7.9 fL (7.4-10.4); Platelet Count 190 thou/uL (130-400); RBC Distribution Width 13.6 % (11.5-14.5); Red Blood Cell (RBC) Count 3.51 mill/uL (4.20-5.40); White Blood Cell (WBC) Count 9.3 thou/uL (4.8-10.8)
[2018-09-13 11:44] LABS: Anion Gap 16 mmol/L (10-20); BUN (Urea Nitrogen) 22 mg/dL (9.8-20.1); Calc. Creatinine Clearance 0 mL/min (70-130); Calcium 9.7 mg/dL (7.8-10.44); Carbon Dioxide 21 mmol/L (23-31); Chloride 102 mmol/L (98-107); Estimated GFR-MDRD 42; Glucose 283 mg/dL (80-115); Sodium 135 mmol/L (136-145)
--- NOTE | 2018-09-13 21:29 | EKG ---
Test Reason : Blood Pressure : / mmHG Vent. Rate : 069 BPM Atrial Rate : 069 BPM P-R Int : 206 ms QRS Dur : 112 ms QT Int : 492 ms P-R-T Axes : 087 071 051 degrees QTc Int : 527 ms Normal sinus rhythm ST elevation consider anterior injury or acute infarct Prolonged QT * ACUTE AK * Abnormal ECG When compared with ECG of 20-AUG-2018 17:20, (Unconfirmed) No Significant changes have occurred Confirmed by Kumar BERNAL ([id number]) on 09/13/2018 9:29:25 PM Referred By: JUSTO Confirmed By:Kumar BERNAL
== END 2018-09-13 10:21 | disposition home or self-care (01) ==
LOC: LABBT 10:20
PROVIDERS: ATTEND Orthopaedic Surgery Hand Surgery
DX: Z01.818 Encounter for other preprocedural examination (principal); M65.321 Trigger finger, right index finger
CPT/HCPCS: 80048; 85025; 93005; 93010

== ENCOUNTER 2018-10-17 09:30 | Outpatient (CLI) | payer MEDICARE, OTHER ==
--- NOTE | 2018-10-17 10:37 | MRI ---
MRI LUMBAR SPINE WITHOUT CONTRAST: Date: 10/17/2018 COMPARISON: None. HISTORY: Lumbar stenosis with neurogenic claudication, low back pain radiating down bilateral lower e xtremities. TECHNIQUE: Multiplanar multisequence MR imaging of the lumbar spine obtained without contrast. FINDINGS: The sagittal STIR imaging demonstrates no focal area of osseous marrow edema. On the basis of 5 lumbar type vertebral bodies, the conus medullaris terminates at L1-2. T12-L1: There is disc space narrowing and disc desiccation with bilateral facet hypertrophy. No centr al canal or neural foraminal stenosis. L1-2: Disc desiccation and disc space narrowing. Bilateral facet hypertrophy with no significant cent ral canal or neural foraminal stenosis. L2-3: Bilateral facet hypertrophy. There is disc space narrowing and disc desiccation with mild disc bulge. There is no significant central canal or neural foraminal stenosis. L3-4: There is disc space narrowing, disc desiccation, and mild disc bulge. There is bilateral facet hypertrophy and hypertrophy of the ligamentum flavum. No significant central canal or neural foraminal stenosis. L4-5: Bilateral facet hypertrophy and hypertrophy of the ligamentum flavum. Disc space narrowing, dis c desiccation, and disc bulge present. There is mild left neural foraminal stenosis. No significant central canal or right neural foraminal stenosis. L5-S1: Bilateral facet hypertrophy. Disc space narrowing, disc desiccation, and mild disc bulge. No s ignificant central canal stenosis or neural foraminal stenosis. Review of the retroperitoneal structures demonstrate no acute findings. IMPRESSION: Degenerative disc disease as detailed above. Transcribed Date/Time: 10/17/2018 11:13 AM
== END 2018-10-17 09:31 | disposition home or self-care (01) ==
LOC: BICMRI 09:30
PROVIDERS: ATTEND Neurological Surgery
DX: M48.062 Spinal stenosis, lumbar region with neurogenic claudication (principal); M51.36 Other intervertebral disc degeneration, lumbar region; M51.37 Other intervertebral disc degeneration, lumbosacral region; M51.35 Other intervertebral disc degeneration, thoracolumbar region
CPT/HCPCS: 72148

== ENCOUNTER 2019-01-08 10:24 | Observation (INO) | payer MEDICARE, OTHER ==
[2019-01-08] MEDS ORDERED: Heparin 0 ML ONE (10:39)
[2019-01-08] MEDS ORDERED: Lidocaine 1% (PF) 30 ML VIAL ONE (10:39)
[2019-01-08 10:50] LABS: #Basophils 0.1 thou/uL (0.0-0.2); #Eosinphils 0.4 thou/uL (0.0-0.7); #Lymphocytes 2.1 thou/uL (1.20-3.40); #Monocytes 0.8 thou/uL (0.11-0.59); #Neutrophils 7.2 thou/uL (1.40-6.50); %Basophils 0.7 % (0.0-1.0); %Eosinophils 3.7 % (0.0-10.0); %Lymphocytes 19.9 % (21.0-51.0); %Monocytes 7.8 % (0.0-10.0); %Neutrophils 67.9 % (42.0-75.0); Hemoglobin 12.4 g/dL (12.0-16.0); Mean Corpuscular HGB CONC 33.4 g/dL (32.0-36.0); Mean Corpuscular Hemoglobin 32.1 pg (27.0-31.0); Mean Platelet Volume 7.9 fL (7.4-10.4); Platelet Count 183 thou/uL (130-400); RBC Distribution Width 13.5 % (11.5-14.5); Red Blood Cell (RBC) Count 3.87 mill/uL (4.20-5.40); White Blood Cell (WBC) Count 10.6 thou/uL (4.8-10.8)
[2019-01-08 11:14] LABS: ALT (SGPT) 38 U/L (8-55); AST (SGOT) 36 U/L (5-34); Albumin 3.6 g/dL (3.4-4.8); Alkaline Phosphatase 88 U/L (40-110); Anion Gap 15 mmol/L (10-20); BUN (Urea Nitrogen) 22 mg/dL (9.8-20.1); Bilirubin, Total 0.5 mg/dL (0.2-1.2); CK (CPK) 79 U/L (29-168); Calc. Creatinine Clearance 0 mL/min (70-130); Calcium 9.7 mg/dL (7.8-10.44); Carbon Dioxide 20 mmol/L (23-31); Chloride 105 mmol/L (98-107); Estimated GFR-MDRD 48; Globulin 4.3 g/dL (2.4-3.5); Glucose 139 mg/dL (80-115); Lipase 47 U/L (8-78); Potassium 4.2 mmol/L (3.5-5.1); Protein, Total 7.9 g/dL (6.0-8.3); Sodium 136 mmol/L (136-145)
--- NOTE | 2019-01-08 11:37 | RAD ---
PORTABLE CHEST 1 VIEW: Date: 01/08/19 Time: 1109 hours HISTORY: Chest pain, dizziness. FINDINGS: Comparison made with exam of 08/20/18. The heart size is prominent, but stable. No evidence of focal areas of consolidation, pneumothoraces, arnav pulmonary edema, or pleural effusions are seen. IMPRESSION: No acute process. POS: H
--- NOTE | 2019-01-08 12:09 | CT ---
Exam: Head CT without contrast HISTORY: Dizziness. Lightheadedness. COMPARISON: none FINDINGS: Hemorrhage: No intraparenchymal hemorrhage or extra-axial hematoma. Brain parenchyma: Cortical joseph-white matter differentiation is preserved. No mass effect or midline shift. Basilar cisterns are patent. Ventricular system: Ventricles and sulci are patent and symmetric. Calvarium: Intact. Sinuses and mastoid air cells: Mild mucosal thickening of the paranasal sinus. Mucous retention cyst in the left maxillary sinus. IMPRESSION: No acute intracranial process.
[2019-01-08 12:11] LABS: Bilirubin Negative (Negative); Blood, Urine Negative (Negative); Clarity Clear (Clear); Glucose, Urine (Dipstick) Normal (Negative); Leukocyte Negative Leu/uL (Negative); Nitrite Negative (Negative); Protein, Urine (Dipstick) Negative (Neg-Trace); Urobilinogen Normal mg/dL (Less than 2)
[2019-01-08] MEDS ORDERED: Meclizine HCl 25 MG TAB ONE (13:02)
[2019-01-08] MEDS ORDERED: Ondansetron ODT 4 MG TAB PO PRN (16:14)
[2019-01-08] MEDS ORDERED: Acetaminophen 325 MG TAB PO PRN (16:14)
[2019-01-08 16:16] VITALS: BMI 40.4
[2019-01-08] MEDS ORDERED: Meclizine HCl 25 MG TAB PO PRN (16:19)
[2019-01-08] MEDS ORDERED: HumaLOG 300 UNITS/3 ML VIAL SC PRN (16:20)
[2019-01-08] MEDS ORDERED: Dextrose 5% in Water 1,000 ML IV PRN (16:20)
[2019-01-08] MEDS ORDERED: Dextrose 50% Abboject 50 ML SYRINGE SLOW IVP PRN (16:20)
[2019-01-08 16:39] LABS: Hemoglobin A1c 8.9 % (4.0-6.0)
--- NOTE | 2019-01-08 18:46 | PDOC.FPRHP ---
- Allergies/Adverse Reactions Allergies Allergy/AdvReac Type Severity Reaction Status Date / Time No Known Allergies Allergy Verified 12/04/17 15:07 - Home Medications Medication Instructions Recorded Confirmed Type Aspirin [Ecotrin Low Strength] 81 mg PO DAILY 10/21/13 01/08/19 History Flecainide Acetate 150 mg PO Q12HR 10/21/13 01/08/19 History Losartan Potassium 50 mg PO DAILY 10/21/13 01/08/19 History Ranitidine HCl 150 mg PO DAILY 10/21/13 01/08/19 History Folic Acid [Folvite] 1 mg PO DAILY 03/12/14 01/08/19 History metFORMIN HCl 1,000 mg PO BID-WM 11/09/15 01/08/19 History Insulin Glargine,Hum.Rec.Anlog 150 unit SQ QAM 01/08/19 01/08/19 History [Faviola Proctor] Liraglutide [Victoza 2-Herrera] 1.2 mg SC DAILY 01/08/19 01/08/19 History Atorvastatin Calcium [Lipitor] 40 mg PO DAILY 01/09/19 01/09/19 History Chlorthalidone 50 mg PO DAILY 01/09/19 01/09/19 History Hydrochlorothiazide 25 mg PO DAILY tab 01/09/19 Rx Meclizine HCl [Antivert] 25 mg PO Q8H PRN #30 tab 01/09/19 Rx - History PMHx: PSHx: FHx: Social: - Vital signs BP: [] HR: [] RR: [] Tmax: [] Pox: []% on [] Wt: [] FMR H&P: Results - Labs Result Diagrams: 01/09/19 04:18 01/09/19 04:18 Lab results: WBC 10.6 thou/uL (4.8-10.8) 01/08/19 10:40 Hgb 12.4 g/dL (12.0-16.0) 01/08/19 10:40 Hct 37.1 % (36.0-47.0) 01/08/19 10:40 MCV 96.0 fL (78.0-98.0) 01/08/19 10:40 Plt Count 183 thou/uL (130-400) 01/08/19 10:40 Neutrophils % 67.9 % (42.0-75.0) 01/08/19 10:40 Sodium 136 mmol/L (136-145) 01/08/19 10:40 Potassium 4.2 mmol/L (3.5-5.1) 01/08/19 10:40 Chloride 105 mmol/L (98-107) 01/08/19 10:40 Carbon Dioxide 20 mmol/L (23-31) L 01/08/19 10:40 BUN 22 mg/dL (9.8-20.1) H 01/08/19 10:40 Creatinine 1.13 mg/dL (0.6-1.1) H 01/08/19 10:40 Glucose 139 mg/dL (80-115) H 01/08/19 10:40 Calcium 9.7 mg/dL (7.8-10.44) 01/08/19 10:40 Total Bilirubin 0.5 mg/dL (0.2-1.2) 01/08/19 10:40 AST 36 U/L (5-34) H 01/08/19 10:40 ALT 38 U/L (8-55) 01/08/19 10:40 Alkaline Phosphatase 88 U/L (40-110) 01/08/19 10:40 Creatine Kinase 79 U/L (29-168) 01/08/19 10:40 Serum Total Protein 7.9 g/dL (6.0-8.3) 01/08/19 10:40 Albumin 3.6 g/dL (3.4-4.8) 01/08/19 10:40 Lipase 47 U/L (8-78) 01/08/19 10:40 Urine Ketones Negative mg/dL (Negative) 01/08/19 11:56 Urine Blood Negative (Negative) 01/08/19 11:56 Urine Nitrite Negative (Negative) 01/08/19 11:56 Ur Leukocyte Esterase Negative Radha/uL (Negative) 01/08/19 11:56 FMR H&P: Upper Level - Plan Date/Time: 01/08/191844 PCP: Tracey HPI: This is a 68 F who comes in complaining of dysequilbrium. She states this started just this morning, states she just feels unsteady walking. No vertigo. No focal weakness. No loss of sensation or headache. The patient states this started about 0530 when she woke up to let her dog out. She is able to walk across the room in the ED but states this is not her baseline, she feels more steady at baseline. Denies fevers, chills, sweats, N/V/D. Denies chest pain or palpitations. Upon arrival to hospital room after eating supper patient states she feels almost completely better. PMH: DM2, HFpEF, (EF 55-60), HTN, CKDII, HLD, afib PSH: c/s x3, milton, partial thyroidectomy, L and R knee replacement Meds: see chart above Allergies: see above Soc Hx: no ESAU Fm hx: non contributory REVIEW OF SYSTEMS: Gen: no fever, chills, or sweats Neuro: denies headache Eyes: no visual changes ENT: no hearing changes, no sore throat, no congestion Resp: denies cough, SOB Card: denies chest pain or palpitations GI: no N/V/D, no abdominal pain Heme: no easy bruising/bleeding, no blood thinners Skin: no rash, no erythema Vitals: BP: 143/70, Pulse:68, Resp: 20, Temp: 98.5 O2 sat: 95 PHYSICAL EXAMINATION: General: NAD, alert and oriented x3 HEENT: PERRLA, EOMI, normal sclera, oropharynx without erythema or exudate Neck: Supple. Full ROM. Heart/Cardiovascular System: RRR, Cap refill < 3 seconds, no rub, no murmur Lungs/Respiratory System: CTA-B, no resp distress Abdomen/Gastro-Intestinal System: no abdominal tenderness, normal bowel sounds Extremities: Warm extremities. No cyanosis or edema Neuro: No gross deficits appreciated. CN 2-12 grossly intact. Able to walk with assistance of cane but states she feels unsteady, upper/lower ext strength 5/5, no upper/lower extremity drift, sensation intact Psychiatry: Awake, Alert and cooperative with exam Skin: No lesions, rashes, or ulcers Musculoskeletal: Full ROM A/P: # Dysequilibrium - NIHSS: 1, HINTS neg, brain CT neg - Consider Brain MRA tomorrow if still symptomatic to r/o posterior CVA - Carotid US not indicated as no anterior circulation sxs at this time - Check orthostatics, TSH, FLP, A1c # DM2 - Home meds, SSI - Glucose 139 in ED # HTN # Hx of A fib - CHADSVASC: 5 - Ppx lovenox for now - States she spoke to Dr Cat about blood thinners and none were indicated as of last visit Fluids: TKO Code: full PPx: lovenox, scd Dispo: pt/ot/rehab, anticipate rehab stay for deconditioning Addendum - Attending - Attending Attestation Date/Time: 01/08/191904 I personally evaluated the patient and discussed the management with Dr. Pettit I agree with the History, Examination, Assessment and Plan documented above with any addition or exceptions noted below. Patient presents with dizziness throughout the day. Positional. Will treat with meclizine. HINTs negative. Some cerebella signs positive on initial exam. Will monitor overnight to make sure no other evidence of posterior CVA. CTA in AM if needed. Orthostatics to be repeated in AM. Able to ambulate in room but report feeling dizzy and "not right." Natasha
[2019-01-08] MEDS: Flecainide 50 MG TAB PO SCH (20:13)
[2019-01-08] MEDS ORDERED: Enoxaparin Sodium 40 MG/0.4 ML SYRINGE SC SCH (21:00)
[2019-01-09 04:34] LABS: #Eosinphils 0.3 thou/uL (0.0-0.7); #Lymphocytes 2.3 thou/uL (1.20-3.40); #Monocytes 0.7 thou/uL (0.11-0.59); #Neutrophils 4.5 thou/uL (1.40-6.50); %Basophils 0.6 % (0.0-1.0); %Eosinophils 3.9 % (0.0-10.0); %Lymphocytes 28.7 % (21.0-51.0); %Monocytes 9.2 % (0.0-10.0); %Neutrophils 57.6 % (42.0-75.0); Hemoglobin 11.2 g/dL (12.0-16.0); Mean Corpuscular HGB CONC 33.6 g/dL (32.0-36.0); Mean Corpuscular Hemoglobin 32.3 pg (27.0-31.0); Mean Corpuscular Volume 96.3 fL (78.0-98.0); Mean Platelet Volume 7.8 fL (7.4-10.4); Platelet Count 159 thou/uL (130-400); RBC Distribution Width 13.3 % (11.5-14.5); Red Blood Cell (RBC) Count 3.45 mill/uL (4.20-5.40); White Blood Cell (WBC) Count 7.9 thou/uL (4.8-10.8)
[2019-01-09 04:56] LABS: Anion Gap 11 mmol/L (10-20); BUN (Urea Nitrogen) 19 mg/dL (9.8-20.1); Calc. Creatinine Clearance 76 mL/min (70-130); Calcium 9.2 mg/dL (7.8-10.44); Carbon Dioxide 26 mmol/L (23-31); Chloride 104 mmol/L (98-107); Cholesterol 90 mg/dl (< 200 Desired); Estimated GFR-MDRD 45; Glucose 202 mg/dL (80-115); HDL Cholesterol 30 mg/dL (>60 Neg Risk); LDL Cholesterol, Calculated 22 mg/dL; Potassium 3.7 mmol/L (3.5-5.1); Sodium 137 mmol/L (136-145); Triglycerides 188 mg/dL (Less than 150)
--- NOTE | 2019-01-09 06:29 | PDOC.FM ---
- Subjective Subjective: Pt is doing well. No longer has dizziness. Alleviated yesterday with meclizine. No falls. - Objective Vital Signs & Weight: Vital Signs (12 hours) Temp Pulse Resp BP BP Pulse Ox 01/09/19 04:00 98.9 F 58 L 18 108/62 92 L 01/09/19 00:00 98.1 F 62 18 139/70 93 L 01/08/19 22:23 99.2 F 62 16 137/70 93 L 01/08/19 20:00 99.2 F 62 16 137/70 93 L Weight Weight 109.769 kg I&O: 01/07/19 01/08/19 01/09/19 06:59 06:59 06:59 Intake Total 810 Balance 810 Result Diagrams: 01/09/19 04:18 01/09/19 04:18 Phys Exam - Physical Examination Constitutional: NAD Respiratory: no wheezing, no rales, clear to auscultation bilateral Cardiovascular: RRR, no significant murmur Gastrointestinal: soft, non-tender, no distention Musculoskeletal: pulses present Neurological: non-focal, normal sensation, moves all 4 limbs CN II-XII Intact, No cerebellar deficits Psychiatric: normal affect, A&O x 3 Skin: normal turgor, cap refill <2 seconds Dx/Plan (1) Dizziness, nonspecific Code(s): R42 - DIZZINESS AND GIDDINESS Status: Acute (2) GERD (gastroesophageal reflux disease) Code(s): K21.9 - GASTRO-ESOPHAGEAL REFLUX DISEASE WITHOUT ESOPHAGITIS Status: Acute (3) Diabetes mellitus type 2, uncontrolled Status: Chronic (4) Hyperlipidemia Code(s): E78.5 - HYPERLIPIDEMIA, UNSPECIFIED Status: Chronic (5) Hypertension Code(s): I10 - ESSENTIAL (PRIMARY) HYPERTENSION Status: Chronic (6) Atrial fibrillation, controlled Code(s): I48.91 - UNSPECIFIED ATRIAL FIBRILLATION Status: Resolved - Plan Plan: # Disequilibrium Deconditioning vs Stroke (A-fib, Vertebrobasilar) vs TIA vs Medication Induced vs Arrhythmia vs Psychogenic vs Meniere vs Vestibular Neuritis Orthostatics negative, CT Head negative, CHADs 5 w/o treatment as she is rate controlled - she sees Dr. Cat. - pt symptoms were alleviated with meclizine. She is decconditioned and next will have therapy. Will put in for PT/OT as well to ensure she has proper treatment. Will discharge with meclizine and discussed with pt to follow up if her symptoms are not controlled on medication. She agrees with this plan. # DM Uncontrolled - cont home meds, SSI # HTN - cont home meds # Anemia - outpt workup Code Status: full Fluids: TKO Diet: HH Dispo: Discharge today as her symptoms are resolved with medication.
[2019-01-09 08:00] VITALS: TEMP 98.5
[2019-01-09] MEDS ORDERED: metFORMIN 500 MG TAB PO SCH (08:00)
[2019-01-09] MEDS ORDERED: Losartan 25 MG TAB PO SCH (09:00)
[2019-01-09] MEDS ORDERED: Folic Acid 1 MG TAB PO SCH (09:00)
[2019-01-09] MEDS ORDERED: Aspirin 81 mg Enteric Coated Tablet PO SCH ×2 (09:00)
[2019-01-09] MEDS ORDERED: INSULIN GLARGINE HUM REC ANLOG 150 UNIT SQ SCH (09:00)
[2019-01-09] MEDS ORDERED: PRE FILLED SC SCH (09:00)
[2019-01-09] MEDS ORDERED: (Liraglutide [Victoza 2-Pak] 1.2 MG) SC SCH (09:00)
[2019-01-09] MEDS ORDERED: Atorvastatin Calcium 40 MG TAB PO SCH (09:00)
[2019-01-09] MEDS ORDERED: Famotidine 20 MG TAB PO SCH (09:00)
[2019-01-09] MEDS ORDERED: Hydrochlorothiazide 25 MG TAB PO SCH (09:00)
[2019-01-09] MEDS ORDERED: INSULIN GLARGINE SC SCH (09:00)
[2019-01-09] MEDS: Flecainide 50 MG TAB PO SCH (10:02)
[2019-01-09 12:51] VITALS: BP 139/68
[2019-01-09] MEDS ORDERED: FLU VACC TS2019-20(65YR UP)/PF 180 MCG/0.5 ML SYRINGE IM ONE (16:30)
--- NOTE | 2019-01-10 09:28 | DIS ---
DATE OF ADMISSION: 01/08/2019 DATE OF DISCHARGE: 01/09/2019 ADMITTING ATTENDING: Ian Casanova MD. DISCHARGE ATTENDING: Dr. Alejandro Loya CONSULTS: None. PROCEDURES: None. PRIMARY DIAGNOSIS: Disequilibrium. SECONDARY DIAGNOSES: 1. Diabetes mellitus. 2. Hypertension. 3. History of atrial fibrillation-rate controlled without anticoagulation. 4. Hyperlipidemia. 5. Reflux. DISCHARGE MEDICATIONS: 1. Ranitidine 150 mg p.o. daily. 2. Aspirin 81 mg p.o. daily. 3. Flecainide acetate 150 mg p.o. q.2 hours. 4. Losartan 50 mg p.o. daily. 5. Folic acid 1 mg p.o. daily. 6. Metformin 1000 mg p.o. b.i.d. 7. Liraglutide 1.2 mg subcu daily. 8. Insulin glargine 150 units subcu q.a.m. 9. Atorvastatin 40 mg p.o. daily. 10. Chlorthalidone 50 mg p.o. daily. 11. Meclizine 25 mg p.o. q.8h. p.r.n. dizziness. DISCONTINUED MEDICATIONS: None. HISTORY OF PRESENT ILLNESS/HOSPITAL COURSE: Laura Lyle is a 68-year-old female who came in with complaints of disequilibrium. Symptoms started in the morning , she felt she became unsteady walking. She denied vertigo or room spinning. She denied focal weakness. No loss of sensation or headache. Due to the symptoms not alleviating with rest, the patient decided to come to the ED where she continued to not feeling at her baseline. She denied any contributory symptoms. In the ED, the patient was found to have a normal neuro exam and stated her symptoms alleviated Neuro exam was within normal limits, preserved sensation, motor, CN II-XII, cerebellum intact. The patient remained on tele through the evening and there were no episodes of atrial fibrillation. She is well controlled with her medications and knows when she has an episode of atrial fibrillation, becoming short of breath and lightheaded. She did not have these symptoms through this stay. Due to the resolution of her symptoms with meclizine, no further workup was desired. Less likely, this was a posterior cerebellar atherosclerotic lesion. She does exhibit some deconditioning which contributed to her symptoms. She was planning to work with physical therapy in the outpatient setting next week. I think it would be a good idea to have her work with Occupational Therapy at this time. Also help with her overall deconditioned state. She sees Dr. Cat for her atrial fibrillation and the patient noted that there was discussion with Dr. Cat, she did not require an anticoagulation, although her CHADs-VASc score is 5. Electrolytes were within normal limits during stay. The patient agreed with care plan and understood if symptoms would come back or not be alleviated with medication that she would follow up. DISPOSITION: Stable. DISCHARGE INSTRUCTIONS: 1. Location: [facility]. 2. Diet: Heart healthy. 3. Activity: Ad alfie, work with PT/OT. 4. Followup: Follow up as needed. Job ID: [id number] [facility]
--- NOTE | 2019-01-11 23:30 | EKG ---
Test Reason : Blood Pressure : / mmHG Vent. Rate : 061 BPM Atrial Rate : 061 BPM P-R Int : 188 ms QRS Dur : 090 ms QT Int : 504 ms P-R-T Axes : -29 046 029 degrees QTc Int : 507 ms Normal sinus rhythm Inferior injury pattern Right bundle branch block Abnormal ECG No changes from 20-AUG-2018 or 04-DEC-2017 Confirmed by SILVER GUEVARA DO ([id number]), acquisition editor THOMPSON CHAN ([id number]) on 01/11/2019 11:30:01 PM Referred By: Confirmed By:SILVER GUEVARA DO
== END 2019-01-09 12:06 | disposition home or self-care (01) ==
LOC: ERS 10:24 → 2SE 15:51
PROVIDERS: ADMIT Family Medicine; ATTEND Family Medicine
DX: R42 Dizziness and giddiness (principal); I48.91 Unspecified atrial fibrillation; I13.0 Hypertensive heart and chronic kidney disease with heart failure and stage 1 through stage 4 chronic kidney disease, or unspecified chronic kidney disease; I50.32 Chronic diastolic (congestive) heart failure; N18.2 Chronic kidney disease, stage 2 (mild); E11.22 Type 2 diabetes mellitus with diabetic chronic kidney disease; E78.5 Hyperlipidemia, unspecified; K21.9 Gastro-esophageal reflux disease without esophagitis; E11.65 Type 2 diabetes mellitus with hyperglycemia; D64.9 Anemia, unspecified; Z79.82 Long term (current) use of aspirin; Z79.4 Long term (current) use of insulin; Z79.899 Other long term (current) drug therapy
CPT/HCPCS: 70450; 71045; 80048; 80061; 81003; 82550; 82962 ×2; 83036; 83690; 84484; 85025; 90662; 93005; 96360; 96372; 97139 ×3; 97535; 99285; G0008; G0378 ×3; 36415; 36416; 80053; 84443; 90471; J1644; J1650; J1815; J2001; J8597

== ENCOUNTER 2019-02-21 08:11 | Outpatient (CLI) | payer MEDICARE, OTHER ==
--- NOTE | 2019-02-21 09:03 | ULT ---
ULTRASOUND ABDOMEN COMPLETE: DATE: 02/21/2019 HISTORY: 68-year-old female with elevated liver function tests. Dr. Lyle reported the left kidney tumor by telephone to Sharron Anderson at [facility] prog morgan at 8:54 AM on 02/21/2019. She was instructed to notify Dr. Muna Vasquez of the left renal tumor when she returns to the clinic. FINDINGS: Liver:Nodular margins. Coarse echotexture of parenchyma. Gallbladder:Not visualized Common duct:8 mm Spleen:No splenomegaly Pancreas:Nonspecific sonographic appearance. Kidneys:3 x 3 cm solid pedunculated mass exophytically protruding from upper pole of left kidney (blo od flow demonstrated by Doppler). This was not present on previous CT of abdomen of 03/12/2014. No hydronephrosis in either kidney. Abdominal aorta:Completely obscured by shadowing from bowel gas. Inferior vena cava:Poorly visualized. Free fluid: None visualized. 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 2) Cirrhosis. 3) status post cholecystectomy.
== END 2019-02-21 08:12 | disposition home or self-care (01) ==
LOC: BICULT 08:11
PROVIDERS: ATTEND Student in an Organized Health Care Education/Training Program
DX: R74.0 Nonspecific elevation of levels of transaminase and lactic acid dehydrogenase [LDH] (principal); E66.9 Obesity, unspecified; E11.9 Type 2 diabetes mellitus without complications; K74.60 Unspecified cirrhosis of liver; Z90.49 Acquired absence of other specified parts of digestive tract; D49.512 Neoplasm of unspecified behavior of left kidney
CPT/HCPCS: 93975

== ENCOUNTER 2019-03-18 13:26 | Outpatient (CLI) | payer MEDICARE, OTHER ==
[2019-03-18] MEDS ORDERED: Iopamidol 370 76% 100 ML VIAL ONE (13:49)
--- NOTE | 2019-03-18 15:46 | CT ---
CT ABDOMEN WITH AND WITHOUT IV CONTRAST: 03/18/19 HISTORY: Left sided renal mass seen on ultrasound of 02/21/19. FINDINGS: The lung bases are clear. The spleen, pancreas, and adrenal glands are normal. Gallbladder is not vis ualized. There is irregularity of the substance of the liver consistent with cirrhosis. No hepatic ma ss or abnormal biliary ductal dilatation is seen. No calculi seen in the kidneys or visualized portions of the ureters. No hydroureteronephrosis seen o n either side. Postcontrast images demonstrate no evidence of right sided renal mass. There is a 3.4 x 3.2 x 2.7 cm enhancing exophytic mass arising from the superior pole of the left kidney. Small low dense lesions are seen in the left renal cortex which are too small to characterize. No renal vein th rombosis is seen. No free air, free fluid or lymphadenopathy is seen. There are a few prominent retroperitoneal lymph n odes measuring up to 7 mm. There are vascular calcifications without evidence of aneurysmal dilatation of the abdominal aorta. There are degenerative changes in the spine. No osteolytic or osteoblastic lesions are noted. There i s a lipoma in the ascending colon measuring up to 2 cm. IMPRESSION: Findings are highly suspicious for left sided renal malignancy. POS: [facility]
== END 2019-03-18 13:27 | disposition home or self-care (01) ==
LOC: BICCT 13:26
PROVIDERS: ATTEND Urology
DX: N28.89 Other specified disorders of kidney and ureter (principal)
CPT/HCPCS: 74170

== ENCOUNTER 2019-04-10 08:46 | Outpatient (CLI) | payer MEDICARE, OTHER ==
--- NOTE | 2019-04-10 10:51 | CT ---
CT OF THE CHEST WITH IV CONTRAST INDICATION: History of renal cancer, cholecystectomy and partial thyroidectomy COMPARISON: CTA of the thorax dated December 07, 2017 FINDINGS: CHEST: Lungs: No suspicious pulmonary nodule is demonstrated. Pleural space: No effusion. Mediastinum: The shotty appearing lymph nodes within the prevascular space are less prominent than on the comparison examination dated April 10, 2019. Index node on image 20 of series 2 measures 8.3 mm where previously measured 9.4 mm. Upper abdomen:No acute abnormality. Osseous structures: No acute osseous abnormality. No destructive osteolytic or osteoblastic lesion i s identified. There is scattered degenerative and osteoarthritic changes. Soft tissues:Normal. IMPRESSION: 1. No CT evidence to suggest metastatic disease in the thorax.
[2019-04-10] MEDS ORDERED: Iopamidol 370 76% 100 ML VIAL ONE (13:32)
== END 2019-04-10 08:47 | disposition home or self-care (01) ==
LOC: CT 08:46
PROVIDERS: ATTEND Urology
DX: K74.60 Unspecified cirrhosis of liver (principal); N28.89 Other specified disorders of kidney and ureter
CPT/HCPCS: 71260; 82565; Q9967

== ENCOUNTER 2019-04-17 09:28 | Outpatient (CLI) | payer MEDICARE, OTHER ==
--- NOTE | 2019-04-17 13:52 | NM ---
WHOLE BODY BONE SCAN: INDICATIONS: History of disorder of the kidneys and ureters. COMPARISON: CT of the chest dated 04/10/2019 and chest radiograph dated 01/08/2019. FINDINGS: Technetium 99m MDP 31.1 millicuries IV was utilized. There is a photopenic defect involving the right knee, consistent with a right total knee prosthesis. There is moderate left and mild right proximal humeral head uptake. On the CT examination from 04/10, just beyond the field of view is visualization of an ununited left proximal humerus fracture. This was retrospectively present involving the left proximal humerus on 01/08/2019 and on 08/20/2018. A nondisplaced fracture may have been present involving the left humeral head on the comparison ches t radiograph dated 04/17/2018. There is some degenerative activity involving the thoracic and lumbar spine. There is degenerative activity also present involving the left knee. There is urinary contamin ation within the perineum. IMPRESSION: 1. Moderate left and mild right proximal humeral bone uptake. The activity on the left is likely rela sanjiv to an ununited proximal left humerus fracture that is only partially seen on multiple comparison chest radiographs, dating back to April 2018. This is only partially visualized on a CT from 2019. Dedicated radiographs of the left shoulder are recommended. 2. Mild activity involving the right shoulder may reflect a healing fracture as well. Recommend dedic ated radiographs of the right shoulder for additional characterization. 3. Degenerative activity as above. POS: [facility]
== END 2019-04-17 09:29 | disposition home or self-care (01) ==
LOC: CT 09:28 → NM 09:29
PROVIDERS: ATTEND Urology
DX: N28.89 Other specified disorders of kidney and ureter (principal); K74.60 Unspecified cirrhosis of liver; M47.816 Spondylosis without myelopathy or radiculopathy, lumbar region; M47.814 Spondylosis without myelopathy or radiculopathy, thoracic region; M17.12 Unilateral primary osteoarthritis, left knee
CPT/HCPCS: 78306; A9503

== ENCOUNTER 2019-08-15 13:17 | Emergency (ER) | payer MEDICARE, OTHER | END 2019-08-15 13:41 | disposition home or self-care (01) | LOC: ERS 13:17 | DX: L03.115 Cellulitis of right lower limb (principal); S80.811A Abrasion, right lower leg, initial encounter; K74.60 Unspecified cirrhosis of liver; I48.91 Unspecified atrial fibrillation; E11.9 Type 2 diabetes mellitus without complications; I10 Essential (primary) hypertension; Z87.891 Personal history of nicotine dependence; Z79.82 Long term (current) use of aspirin; Z79.84 Long term (current) use of oral hypoglycemic drugs; Z79.899 Other long term (current) drug therapy; W54.8XXA Other contact with dog, initial encounter | CPT/HCPCS: 99283 ==

== ENCOUNTER 2021-04-26 15:27 | Inpatient (IN) | payer MEDICARE, OTHER ==
[2021-04-26 16:15] LABS: #Basophils 0.1 thou/uL (0.0-0.2); #Eosinphils 0.3 thou/uL (0.0-0.7); #Monocytes 0.9 thou/uL (0.11-0.59); #Neutrophils 8.9 thou/uL (1.40-6.50); %Basophils 0.5 % (0.0-1.0); %Eosinophils 2.3 % (0.0-10.0); %Lymphocytes 16.1 % (21.0-51.0); %Monocytes 7.5 % (0.0-10.0); %Neutrophils 73.6 % (42.0-75.0); Hemoglobin 6.4 g/dL (12.0-16.0); Mean Corpuscular Volume 90.4 fL (78.0-98.0); Mean Platelet Volume 9.1 fL (7.4-10.4); Platelet Count 179 thou/uL (130-400); RBC Distribution Width 14.6 % (11.5-14.5); Red Blood Cell (RBC) Count 2.21 mill/uL (4.20-5.40); White Blood Cell (WBC) Count 12.1 thou/uL (4.8-10.8)
[2021-04-26 16:26] LABS: INR-International Normal Ratio 1.5; PTT 31.4 sec (22.9-36.1); Prothrombin Time 18.3 sec (12.0-14.7)
[2021-04-26 16:36] LABS: ALT (SGPT) 13 U/L (8-55); AST (SGOT) 16 U/L (5-34); Albumin 2.7 g/dL (3.4-4.8); Alkaline Phosphatase 96 U/L (40-110); Anion Gap 14 mmol/L (10-20); BUN (Urea Nitrogen) 65 mg/dL (9.8-20.1); Bilirubin, Total 0.6 mg/dL (0.2-1.2); Calc. Creatinine Clearance 0 mL/min (70-130); Calcium 8.2 mg/dL (7.8-10.44); Carbon Dioxide 19 mmol/L (23-31); Chloride 104 mmol/L (98-107); Globulin 4.1 g/dL (2.4-3.5); Glucose 430 mg/dL (83-110); Protein, Total 6.8 g/dL (5.8-8.1); Sodium 133 mmol/L (136-145)
[2021-04-26] MEDS ORDERED: Fentanyl 100 MCG/2 ML VIAL ONE (17:35)
[2021-04-26] MEDS ORDERED: Ondansetron PF 4 MG/2 ML Vial ONE (17:37)
[2021-04-26] MEDS ORDERED: Pantoprazole 40 MG VIAL ONE (17:37)
[2021-04-26] MEDS ORDERED: cefTRIAXone\\ROCEPHIN 2 GM VIAL ONE (18:30)
[2021-04-26 19:21] LABS: Bilirubin Negative (Negative); Blood, Urine Negative (Negative); Clarity Clear (Clear); Glucose, Urine (Dipstick) 100 mg/dL (Negative); Ketone, Urine Negative (Negative); Leukocyte Negative Leu/uL (Negative); Nitrite Negative (Negative); Protein, Urine (Dipstick) Negative (Neg-Trace); Specific Gravity, Urine 1.019 (1.002-1.036); Urobilinogen Normal mg/dL (Less than 2)
[2021-04-26 20:48] LABS: Lactic Acid 3.8 mmol/L (0.5-2.2)
[2021-04-26 20:58] LABS: SARS-CoV-2 NAA Rapid Test Not Detected (NotDetected)
[2021-04-26 21:24] LABS: Troponin I Less than 0.010 ng/mL (< 0.028)
[2021-04-26] MEDS ORDERED: Vancomycin 1 GM/200 ML BAG ONE (22:06)
[2021-04-26] MEDS ORDERED: Ondansetron ODT 4 MG TAB PO PRN (23:19)
[2021-04-26] MEDS ORDERED: Calcium Carbonate 500 MG ChewTAB PO PRN (23:19)
[2021-04-26] MEDS ORDERED: Ondansetron PF 4 MG/2 ML Vial IVP PRN (23:19)
[2021-04-26] MEDS ORDERED: Dextrose 5% in Water 1,000 ML IV PRN (23:19)
[2021-04-26] MEDS ORDERED: Acetaminophen 650 MG Suppository PR PRN (23:19)
[2021-04-26] MEDS ORDERED: Acetaminophen 325 MG TAB PO PRN (23:19)
[2021-04-26] MEDS ORDERED: Dextrose 50% Abboject 50 ML SYRINGE SLOW IVP PRN (23:19)
[2021-04-26] MEDS ORDERED: HumaLOG 300 UNITS/3 ML VIAL SC PRN (23:21)
[2021-04-26] MEDS ORDERED: Metoprolol Tartrate 25 MG TAB PO SCH (23:30)
[2021-04-26] MEDS ORDERED: Octreotide Acetate 50 MCG in Sodium Chloride 0.9% 50 ML IVPB SCH (23:30)
[2021-04-26] MEDS ORDERED: Pantoprazole 80 MG in Sodium Chloride 0.9% 100 ML IVPB SCH (23:30)
[2021-04-26] MEDS ORDERED: Lantus 1000 UNITS/10 ML VIAL SC SCH (23:45)
[2021-04-27] MEDS: Octreotide Acetate 1,250 MCG in Sodium Chloride 0.9% 250 ML 250 ML IVPB SCH (00:10)
[2021-04-27 00:15] LABS: Troponin I 0.012 ng/mL (< 0.028)
[2021-04-27] MEDS: HumaLOG 300 UNITS/3 ML VIAL SC PRN ×2 (00:15→05:23)
[2021-04-27 02:06] LABS: Hemoglobin 7.6 g/dL (12.0-16.0)
[2021-04-27 03:56] LABS: #Eosinphils 0.1 thou/uL (0.0-0.7); #Monocytes 0.9 thou/uL (0.11-0.59); #Neutrophils 6.8 thou/uL (1.40-6.50); %Basophils 0.3 % (0.0-1.0); %Eosinophils 1.4 % (0.0-10.0); %Lymphocytes 20.3 % (21.0-51.0); %Monocytes 9.3 % (0.0-10.0); %Neutrophils 68.8 % (42.0-75.0); Hemoglobin 7.1 g/dL (12.0-16.0); Mean Corpuscular HGB CONC 33.1 g/dL (32.0-36.0); Mean Corpuscular Volume 90.5 fL (78.0-98.0); Mean Platelet Volume 8.8 fL (7.4-10.4); Platelet Count 125 thou/uL (130-400); RBC Distribution Width 14.1 % (11.5-14.5); Red Blood Cell (RBC) Count 2.38 mill/uL (4.20-5.40); White Blood Cell (WBC) Count 9.9 thou/uL (4.8-10.8)
[2021-04-27 04:11] LABS: Hemoglobin A1c 10.3 % (4.0-6.0)
[2021-04-27 04:12] LABS: Lactic Acid 2.2 mmol/L (0.5-2.2)
[2021-04-27 04:17] LABS: Anion Gap 14 mmol/L (10-20); BUN (Urea Nitrogen) 67 mg/dL (9.8-20.1); Calc. Creatinine Clearance 52 mL/min (70-130); Calcium 7.9 mg/dL (7.8-10.44); Carbon Dioxide 19 mmol/L (23-31); Chloride 107 mmol/L (98-107); Glucose 307 mg/dL (83-110); Potassium 3.7 mmol/L (3.5-5.1); Sodium 136 mmol/L (136-145)
[2021-04-27] MEDS ORDERED: Lactated Ringer's 1,000 ML IV SCH (05:15)
[2021-04-27 07:06] LABS: Magnesium 1.3 mg/dL (1.6-2.6); Phosphorus 2.8 mg/dL (2.3-4.7)
[2021-04-27 07:40] LABS: Hemoglobin 7.7 g/dL (12.0-16.0); Platelet Count 127 thou/uL (130-400)
[2021-04-27] MEDS ORDERED: Electrolyte Replacement Protocol 1 EACH FS PRN (07:45)
[2021-04-27] MEDS ORDERED: Lactated Ringer's 500 ML IV SCH (07:45)
[2021-04-27 07:55] LABS: INR-International Normal Ratio 1.3; PTT 26.1 sec (22.9-36.1); Prothrombin Time 16.7 sec (12.0-14.7)
[2021-04-27] MEDS: Pantoprazole 80 MG, Admixture Fee 1 EACH in Sodium Chloride 0.9% 100 ML IVPB SCH ×2 (08:35→18:38)
[2021-04-27] MEDS: Metoprolol Tartrate 25 MG TAB PO SCH ×2 (08:44→20:58)
[2021-04-27] MEDS ORDERED: Magnesium 2 GM/50 ML 2 GM in Premix Bag 1 BAG IVPB SCH (08:45)
[2021-04-27] MEDS ORDERED: Cefepime 2 GM in Sodium Chloride 0.9% 100 ML IVPB SCH (09:00)
[2021-04-27] MEDS ORDERED: Lantus 1000 UNITS/10 ML VIAL SC SCH ×2 (09:00→21:00)
[2021-04-27] MEDS ORDERED: Dextrose 50% Abboject 50 ML SYRINGE ONE (12:54)
[2021-04-27] MEDS: Dextrose 5%-Lactated Ringers 1,000 ML IV SCH (13:27)
[2021-04-27] MEDS: Acetaminophen 325 MG TAB PO PRN (20:57)
[2021-04-27] MEDS: Lantus 1000 UNITS/10 ML VIAL SC SCH (23:14)
[2021-04-28] MEDS: Dextrose 5%-Lactated Ringers 1,000 ML IV SCH ×3 (00:05→20:37)
[2021-04-28 03:48] LABS: #Eosinphils 0.6 thou/uL (0.0-0.7); #Lymphocytes 1.4 thou/uL (1.20-3.40); #Monocytes 0.8 thou/uL (0.11-0.59); %Basophils 0.2 % (0.0-1.0); %Eosinophils 7.1 % (0.0-10.0); %Lymphocytes 15.5 % (21.0-51.0); %Monocytes 9.1 % (0.0-10.0); %Neutrophils 68.2 % (42.0-75.0); Hemoglobin 7.2 g/dL (12.0-16.0); Mean Corpuscular HGB CONC 33.6 g/dL (32.0-36.0); Mean Corpuscular Hemoglobin 31.7 pg (27.0-31.0); Mean Corpuscular Volume 94.4 fL (78.0-98.0); Mean Platelet Volume 8.8 fL (7.4-10.4); Platelet Count 137 thou/uL (130-400); RBC Distribution Width 14.8 % (11.5-14.5); Red Blood Cell (RBC) Count 2.28 mill/uL (4.20-5.40); White Blood Cell (WBC) Count 8.7 thou/uL (4.8-10.8)
[2021-04-28 04:00] LABS: Anion Gap 9 mmol/L (10-20); BUN (Urea Nitrogen) 53 mg/dL (9.8-20.1); Calc. Creatinine Clearance 55 mL/min (70-130); Calcium 8.3 mg/dL (7.8-10.44); Carbon Dioxide 23 mmol/L (23-31); Chloride 109 mmol/L (98-107); Glucose 64 mg/dL (83-110); Potassium 3.2 mmol/L (3.5-5.1); Sodium 138 mmol/L (136-145)
[2021-04-28] MEDS ORDERED: Dextrose 10% in Water 100 ML IV SCH (04:15)
[2021-04-28] MEDS: Acetaminophen 325 MG TAB PO PRN (04:22)
[2021-04-28 05:38] VITALS: BMI 37.0
[2021-04-28] MEDS: Potassium Chloride 20 MEQ in Premix Bag 1 BAG IVPB SCH ×2 (06:05→09:00)
[2021-04-28 08:20] LABS: Magnesium 1.7 mg/dL (1.6-2.6)
[2021-04-28] MEDS ORDERED: Magnesium 2 GM/50 ML 2 GM in Premix Bag 1 BAG IVPB SCH (09:00)
[2021-04-28] MEDS: Cefepime 2 GM in Sodium Chloride 0.9% 100 ML IVPB SCH (09:00)
[2021-04-28] MEDS ORDERED: Lidocaine 1% PF 5 ML VIAL ONE (10:24)
[2021-04-28] MEDS ORDERED: PROPOFOL 200 MG/20 ML VIAL ONE (10:24)
[2021-04-28] MEDS: Metoprolol Tartrate 25 MG TAB PO SCH ×2 (15:12→21:15)
[2021-04-28] MEDS: Pantoprazole 40 MG VIAL IVP SCH (21:15)
[2021-04-28] MEDS: Lantus 1000 UNITS/10 ML VIAL SC SCH (21:17)
[2021-04-29] MEDS: Octreotide Acetate 1,250 MCG in Sodium Chloride 0.9% 250 ML 250 ML IVPB SCH (01:02)
[2021-04-29 03:51] LABS: #Eosinphils 0.6 thou/uL (0.0-0.7); #Lymphocytes 1.4 thou/uL (1.20-3.40); #Monocytes 0.8 thou/uL (0.11-0.59); #Neutrophils 4.8 thou/uL (1.40-6.50); %Basophils 0.3 % (0.0-1.0); %Eosinophils 7.6 % (0.0-10.0); %Lymphocytes 17.8 % (21.0-51.0); %Monocytes 10.3 % (0.0-10.0); %Neutrophils 63.9 % (42.0-75.0); Hemoglobin 7.2 g/dL (12.0-16.0); Mean Corpuscular HGB CONC 33.7 g/dL (32.0-36.0); Mean Corpuscular Hemoglobin 31.6 pg (27.0-31.0); Mean Corpuscular Volume 93.9 fL (78.0-98.0); Mean Platelet Volume 8.1 fL (7.4-10.4); Platelet Count 140 thou/uL (130-400); RBC Distribution Width 15.4 % (11.5-14.5); Red Blood Cell (RBC) Count 2.27 mill/uL (4.20-5.40); White Blood Cell (WBC) Count 7.6 thou/uL (4.8-10.8)
[2021-04-29 03:52] LABS: INR-International Normal Ratio 1.2; Prothrombin Time 15.7 sec (12.0-14.7)
[2021-04-29 04:03] LABS: Anion Gap 8 mmol/L (10-20); BUN (Urea Nitrogen) 37 mg/dL (9.8-20.1); Calc. Creatinine Clearance 57 mL/min (70-130); Calcium 8.3 mg/dL (7.8-10.44); Carbon Dioxide 22 mmol/L (23-31); Chloride 108 mmol/L (98-107); Glucose 127 mg/dL (83-110); Potassium 3.7 mmol/L (3.5-5.1); Sodium 134 mmol/L (136-145)
[2021-04-29] MEDS: Dextrose 5%-Lactated Ringers 1,000 ML IV SCH (05:28)
[2021-04-29] MEDS: Pantoprazole 40 MG VIAL IVP SCH (09:04)
[2021-04-29] MEDS: Cefepime 2 GM in Sodium Chloride 0.9% 100 ML IVPB SCH (09:04)
[2021-04-29] MEDS: Metoprolol Tartrate 25 MG TAB PO SCH (09:40)
[2021-04-29] MEDS: Polyethylene Glycol 3350 17 GM Packet PO SCH (09:43)
[2021-04-29] MEDS: HumaLOG 300 UNITS/3 ML VIAL SC PRN (16:54)
[2021-04-29 17:04] LABS: Hemoglobin 8.4 g/dL (12.0-16.0)
[2021-04-29] MEDS: Carvedilol 6.25 MG TAB PO SCH (17:15)
[2021-04-29] MEDS: Lantus 1000 UNITS/10 ML VIAL SC SCH (20:55)
[2021-04-29] MEDS ORDERED: Metoprolol Tartrate 25 MG TAB PO SCH (21:00)
[2021-04-30] MEDS: Octreotide Acetate 1,250 MCG in Sodium Chloride 0.9% 250 ML 250 ML IVPB SCH (02:21)
[2021-04-30 06:19] LABS: Anion Gap 8 mmol/L (10-20); BUN (Urea Nitrogen) 27 mg/dL (9.8-20.1); Calc. Creatinine Clearance 55 mL/min (70-130); Calcium 8.2 mg/dL (7.8-10.44); Carbon Dioxide 24 mmol/L (23-31); Chloride 105 mmol/L (98-107); Glucose 301 mg/dL (83-110); Sodium 133 mmol/L (136-145)
[2021-04-30] MEDS: HumaLOG 300 UNITS/3 ML VIAL SC PRN ×4 (06:45→20:45)
[2021-04-30 07:00] LABS: #Eosinphils 0.3 thou/uL (0.0-0.7); #Lymphocytes 1.3 thou/uL (1.20-3.40); #Monocytes 0.6 thou/uL (0.11-0.59); #Neutrophils 4.1 thou/uL (1.40-6.50); %Basophils 0.7 % (0.0-1.0); %Eosinophils 4.7 % (0.0-10.0); %Lymphocytes 20.4 % (21.0-51.0); %Monocytes 10.1 % (0.0-10.0); %Neutrophils 64.2 % (42.0-75.0); Anisocytosis SLIGHT = 6-15 cells (100X) (0-5/hpf); Hemoglobin 7.2 g/dL (12.0-16.0); MDiff Complete? YES; Mean Corpuscular HGB CONC 32.4 g/dL (32.0-36.0); Mean Corpuscular Hemoglobin 30.9 pg (27.0-31.0); Mean Corpuscular Volume 95.4 fL (78.0-98.0); Mean Platelet Volume 8.2 fL (7.4-10.4); Platelet Count 115 thou/uL (130-400); Platelet Morphology Comment Appears Decreased; RBC Distribution Width 15.8 % (11.5-14.5); Red Blood Cell (RBC) Count 2.34 mill/uL (4.20-5.40); White Blood Cell (WBC) Count 6.3 thou/uL (4.8-10.8)
[2021-04-30] MEDS ORDERED: Octreotide Acetate 1,250 MCG in Sodium Chloride 0.9% 250 ML 250 ML IVPB SCH ×2 (08:30→09:00)
[2021-04-30] MEDS: Polyethylene Glycol 3350 17 GM Packet PO SCH (08:34)
[2021-04-30] MEDS: Carvedilol 6.25 MG TAB PO SCH ×2 (08:36→17:30)
[2021-04-30] MEDS: Cefepime 2 GM in Sodium Chloride 0.9% 100 ML IVPB SCH (08:42)
[2021-04-30 11:46] LABS: Hemoglobin 8.5 g/dL (12.0-16.0)
[2021-04-30] MEDS ORDERED: Lantus 1000 UNITS/10 ML VIAL SC SCH (21:00)
[2021-05-01] MEDS: HumaLOG 300 UNITS/3 ML VIAL SC PRN ×3 (05:51→21:19)
[2021-05-01 06:39] LABS: #Eosinphils 0.3 thou/uL (0.0-0.7); #Lymphocytes 1.1 thou/uL (1.20-3.40); #Monocytes 0.6 thou/uL (0.11-0.59); #Neutrophils 3.8 thou/uL (1.40-6.50); %Basophils 0.1 % (0.0-1.0); %Lymphocytes 18.7 % (21.0-51.0); %Monocytes 10.8 % (0.0-10.0); %Neutrophils 65.3 % (42.0-75.0); Hemoglobin 7.4 g/dL (12.0-16.0); Mean Corpuscular HGB CONC 32.3 g/dL (32.0-36.0); Mean Corpuscular Volume 95.9 fL (78.0-98.0); Mean Platelet Volume 8.5 fL (7.4-10.4); Platelet Count 112 thou/uL (130-400); RBC Distribution Width 16.2 % (11.5-14.5); White Blood Cell (WBC) Count 5.9 thou/uL (4.8-10.8)
[2021-05-01 06:57] LABS: Anion Gap 8 mmol/L (10-20); BUN (Urea Nitrogen) 22 mg/dL (9.8-20.1); Calc. Creatinine Clearance 60 mL/min (70-130); Calcium 8.3 mg/dL (7.8-10.44); Carbon Dioxide 24 mmol/L (23-31); Chloride 105 mmol/L (98-107); Glucose 257 mg/dL (83-110); Potassium 4.1 mmol/L (3.5-5.1); Sodium 133 mmol/L (136-145)
[2021-05-01] MEDS: Cefepime 2 GM in Sodium Chloride 0.9% 100 ML IVPB SCH (08:40)
[2021-05-01] MEDS: Carvedilol 6.25 MG TAB PO SCH ×2 (08:40→17:37)
[2021-05-01] MEDS: Polyethylene Glycol 3350 17 GM Packet PO SCH (08:42)
[2021-05-01] MEDS ORDERED: Lantus 1000 UNITS/10 ML VIAL SC SCH (09:11)
[2021-05-01 13:35] LABS: Hemoglobin 7.5 g/dL (12.0-16.0)
[2021-05-01 23:16] LABS: Hemoglobin 7.9 g/dL (12.0-16.0)
[2021-05-02] MEDS: HumaLOG 300 UNITS/3 ML VIAL SC PRN ×2 (06:21→11:56)
[2021-05-02 07:37] LABS: #Eosinphils 0.4 thou/uL (0.0-0.7); #Lymphocytes 1.2 thou/uL (1.20-3.40); #Monocytes 0.6 thou/uL (0.11-0.59); #Neutrophils 4.3 thou/uL (1.40-6.50); %Basophils 0.4 % (0.0-1.0); %Eosinophils 5.6 % (0.0-10.0); %Lymphocytes 18.9 % (21.0-51.0); %Neutrophils 66.1 % (42.0-75.0); Hemoglobin 8.4 g/dL (12.0-16.0); Mean Corpuscular HGB CONC 31.9 g/dL (32.0-36.0); Mean Corpuscular Hemoglobin 30.5 pg (27.0-31.0); Mean Corpuscular Volume 95.8 fL (78.0-98.0); Mean Platelet Volume 8.4 fL (7.4-10.4); Platelet Count 126 thou/uL (130-400); RBC Distribution Width 15.6 % (11.5-14.5); Red Blood Cell (RBC) Count 2.77 mill/uL (4.20-5.40); White Blood Cell (WBC) Count 6.4 thou/uL (4.8-10.8)
[2021-05-02 08:30] LABS: Chloride 104 mmol/L (98-107); Sodium 134 mmol/L (136-145)
[2021-05-02 08:31] LABS: Calcium 8.6 mg/dL (7.8-10.44); Glucose 195 mg/dL (83-110)
[2021-05-02 08:33] LABS: Anion Gap 11 mmol/L (10-20); Carbon Dioxide 23 mmol/L (23-31)
[2021-05-02 08:34] LABS: Calc. Creatinine Clearance 62 mL/min (70-130)
[2021-05-02 08:35] LABS: BUN (Urea Nitrogen) 20 mg/dL (9.8-20.1)
[2021-05-02] MEDS: Carvedilol 6.25 MG TAB PO SCH (08:47)
[2021-05-02] MEDS: Cefepime 2 GM in Sodium Chloride 0.9% 100 ML IVPB SCH (08:50)
[2021-05-02 08:51] VITALS: BP 132/70; TEMP 98.2
[2021-05-02] MEDS: Polyethylene Glycol 3350 17 GM Packet PO SCH (08:51)
[2021-05-02] MEDS ORDERED: Lantus 1000 UNITS/10 ML VIAL SC SCH (09:00)
== END 2021-05-02 13:44 | disposition home or self-care (01) | DRG 432 ==
LOC: ERS 15:27 → CCU 20:26 → SURG A 04-30 02:05
PROVIDERS: ADMIT Student in an Organized Health Care Education/Training Program; ATTEND Student in an Organized Health Care Education/Training Program
PROC: 30233N1 Transfusion of Nonautologous Red Blood Cells into Peripheral Vein, Percutaneous Approach (ICD-10-PCS; 2021-04-26)
PROC: 06L38CZ Occlusion of Esophageal Vein with Extraluminal Device, Via Natural or Artificial Opening Endoscopic (ICD-10-PCS; principal; 2021-04-28)
PROC: 0DB78ZX Excision of Stomach, Pylorus, Via Natural or Artificial Opening Endoscopic, Diagnostic (ICD-10-PCS; 2021-04-28)
DX: K74.60 Unspecified cirrhosis of liver (principal); I85.11 Secondary esophageal varices with bleeding; K25.4 Chronic or unspecified gastric ulcer with hemorrhage; K76.6 Portal hypertension; D62 Acute posthemorrhagic anemia; I50.32 Chronic diastolic (congestive) heart failure; I13.0 Hypertensive heart and chronic kidney disease with heart failure and stage 1 through stage 4 chronic kidney disease, or unspecified chronic kidney disease; N18.4 Chronic kidney disease, stage 4 (severe); E87.2 Acidosis; N17.9 Acute kidney failure, unspecified; Z20.822 Contact with and (suspected) exposure to COVID-19; K31.89 Other diseases of stomach and duodenum; K29.60 Other gastritis without bleeding; I48.91 Unspecified atrial fibrillation; E11.65 Type 2 diabetes mellitus with hyperglycemia; E78.5 Hyperlipidemia, unspecified; Z96.653 Presence of artificial knee joint, bilateral; D63.1 Anemia in chronic kidney disease; E89.0 Postprocedural hypothyroidism; K75.81 Nonalcoholic steatohepatitis (NASH); E11.22 Type 2 diabetes mellitus with diabetic chronic kidney disease; Z79.899 Other long term (current) drug therapy; Z79.82 Long term (current) use of aspirin; Z79.4 Long term (current) use of insulin; Z79.84 Long term (current) use of oral hypoglycemic drugs; Z79.01 Long term (current) use of anticoagulants; Z90.5 Acquired absence of kidney; Z85.528 Personal history of other malignant neoplasm of kidney; Z87.891 Personal history of nicotine dependence; Z90.49 Acquired absence of other specified parts of digestive tract; Z80.0 Family history of malignant neoplasm of digestive organs; Z82.49 Family history of ischemic heart disease and other diseases of the circulatory system
CPT/HCPCS: 36415; 36416; 36430; 71045; 74176; 80048; 80053; 81003; 83036; 83605; 83735; 84100; 84145; 84484; 85014; 85018; 85025; 85384; 85610; 85730; 86850; 86900; 86901; 87040; 87086; 88305; 88312; 93005; C9113; J0692; J0696; J1815; J2354; J2405; J2704; J3010; J3370; J3475; J3480; J3490; J7050; J7060; J7120; P9016; U0002

== ENCOUNTER 2021-07-22 18:02 | Inpatient (IN) | payer MEDICARE, OTHER ==
[2021-07-22 19:00] LABS: #Eosinphils 0.1 thou/uL (0.0-0.7); #Monocytes 0.7 thou/uL (0.11-0.59); #Neutrophils 5.5 thou/uL (1.40-6.50); %Basophils 0.6 % (0.0-1.0); %Eosinophils 1.2 % (0.0-10.0); %Lymphocytes 13.8 % (21.0-51.0); %Monocytes 9.8 % (0.0-10.0); %Neutrophils 74.7 % (42.0-75.0); Hemoglobin 8.5 g/dL (12.0-16.0); Mean Corpuscular HGB CONC 30.3 g/dL (32.0-36.0); Mean Corpuscular Hemoglobin 27.2 pg (27.0-31.0); Mean Corpuscular Volume 89.8 fL (78.0-98.0); Mean Platelet Volume 9.3 fL (7.4-10.4); Platelet Count 151 thou/uL (130-400); Red Blood Cell (RBC) Count 3.13 mill/uL (4.20-5.40); White Blood Cell (WBC) Count 7.4 thou/uL (4.8-10.8)
[2021-07-22 19:13] LABS: INR-International Normal Ratio 1.3; PTT 31.1 sec (22.9-36.1); Prothrombin Time 16.2 sec (12.0-14.7)
[2021-07-22] MEDS ORDERED: Octreotide Acetate 1,250 MCG in Sodium Chloride 0.9% 250 ML 250 ML IVPB SCH ×2 (19:15→21:16)
[2021-07-22] MEDS ORDERED: Octreotide Acetate 100 MCG/ML VIAL ONE (19:24)
[2021-07-22] MEDS ORDERED: cefTRIAXone\\ROCEPHIN 2 GM VIAL ONE (19:24)
[2021-07-22] MEDS ORDERED: Pantoprazole 40 MG VIAL ONE (19:24)
[2021-07-22 19:26] LABS: ALT (SGPT) 14 U/L (8-55); AST (SGOT) 19 U/L (5-34); Albumin 3.3 g/dL (3.4-4.8); Alkaline Phosphatase 138 U/L (40-110); Anion Gap 12 mmol/L (10-20); BUN (Urea Nitrogen) 29 mg/dL (9.8-20.1); Bilirubin, Total 0.4 mg/dL (0.2-1.2); Calc. Creatinine Clearance 0 mL/min (70-130); Calcium 8.9 mg/dL (7.8-10.44); Carbon Dioxide 23 mmol/L (23-31); Chloride 100 mmol/L (98-107); Globulin 4.9 g/dL (2.4-3.5); Glucose 545 mg/dL (83-110); Potassium 4.1 mmol/L (3.5-5.1); Protein, Total 8.2 g/dL (5.8-8.1); Sodium 131 mmol/L (136-145)
[2021-07-22] MEDS ORDERED: Dextrose 5% in Water 1,000 ML IV PRN (21:16)
[2021-07-22] MEDS ORDERED: Ondansetron PF 4 MG/2 ML Vial IVP PRN (21:16)
[2021-07-22] MEDS ORDERED: Dextrose 50% Abboject 50 ML SYRINGE SLOW IVP PRN (21:16)
[2021-07-22] MEDS ORDERED: HumaLOG 300 UNITS/3 ML VIAL SC PRN (21:20)
[2021-07-22 22:08] LABS: Lactic Acid 1.5 mmol/L (0.5-2.2)
[2021-07-23 00:19] VITALS: BMI 36.5
[2021-07-23] MEDS ORDERED: Insulin Glargine 30 UNITS/0.3 ML VIAL SC SCH ×3 (00:30→21:00)
[2021-07-23] MEDS ORDERED: Sodium Chloride 0.9% 1,000 ML IV SCH (01:00)
[2021-07-23] MEDS ORDERED: Labetalol HCl 100 MG/20 ML VIAL SLOW IVP PRN (01:12)
[2021-07-23 04:48] LABS: #Eosinphils 0.1 thou/uL (0.0-0.7); #Monocytes 0.6 thou/uL (0.11-0.59); #Neutrophils 3.6 thou/uL (1.40-6.50); %Basophils 0.6 % (0.0-1.0); %Eosinophils 2.1 % (0.0-10.0); %Lymphocytes 19.2 % (21.0-51.0); %Monocytes 10.9 % (0.0-10.0); %Neutrophils 67.2 % (42.0-75.0); Hemoglobin 7.9 g/dL (12.0-16.0); Mean Corpuscular HGB CONC 30.9 g/dL (32.0-36.0); Mean Corpuscular Hemoglobin 27.5 pg (27.0-31.0); Mean Corpuscular Volume 89.1 fL (78.0-98.0); Platelet Count 135 thou/uL (130-400); RBC Distribution Width 17.1 % (11.5-14.5); Red Blood Cell (RBC) Count 2.88 mill/uL (4.20-5.40); White Blood Cell (WBC) Count 5.4 thou/uL (4.8-10.8)
[2021-07-23 05:08] LABS: ALT (SGPT) 13 U/L (8-55); AST (SGOT) 14 U/L (5-34); Albumin 3.1 g/dL (3.4-4.8); Alkaline Phosphatase 113 U/L (40-110); Anion Gap 10 mmol/L (10-20); BUN (Urea Nitrogen) 27 mg/dL (9.8-20.1); Bilirubin, Total 0.4 mg/dL (0.2-1.2); Calc. Creatinine Clearance 48 mL/min (70-130); Calcium 8.7 mg/dL (7.8-10.44); Carbon Dioxide 27 mmol/L (23-31); Chloride 102 mmol/L (98-107); Globulin 4.4 g/dL (2.4-3.5); Glucose 247 mg/dL (83-110); Potassium 3.8 mmol/L (3.5-5.1); Protein, Total 7.5 g/dL (5.8-8.1); Sodium 135 mmol/L (136-145)
[2021-07-23] MEDS: Lactated Ringer's 1,000 ML IV SCH ×2 (06:29→15:35)
[2021-07-23] MEDS: Pantoprazole 40 MG VIAL IVP SCH ×2 (08:18→20:28)
[2021-07-23 10:48] LABS: Iron 29 ug/dL (50-170); Iron Binding Capacity, Total 451 mcg/dL (265-497)
[2021-07-23 11:13] LABS: Ferritin 20.76 ng/mL (10-291)
[2021-07-23] MEDS ORDERED: GoLYTELY 4,000 ml Bottle PO SCH (11:15)
[2021-07-23] MEDS ORDERED: Losartan 25 MG TAB PO SCH (13:30)
[2021-07-23] MEDS ORDERED: Metoprolol Tartrate 100 MG TAB PO SCH (13:30)
[2021-07-23 16:11] LABS: SARS-CoV-2 PCR by NAA Not Detected (NotDetected)
[2021-07-23 16:24] LABS: Hemoglobin 8.3 g/dL (12.0-16.0)
[2021-07-23] MEDS: cefTRIAXone\\ROCEPHIN 1 GM in Sodium Chloride 0.9% 100 ML IVPB SCH (17:34)
[2021-07-23] MEDS: HumaLOG 300 UNITS/3 ML VIAL SC PRN (17:34)
[2021-07-23] MEDS: Metoprolol Tartrate 100 MG TAB PO SCH (20:28)
[2021-07-24] MEDS: Lactated Ringer's 1,000 ML IV SCH ×4 (01:30→12:53)
[2021-07-24] MEDS ORDERED: Lidocaine 5% Patch TD SCH ×3 (01:45→20:00)
[2021-07-24 04:36] LABS: #Eosinphils 0.1 thou/uL (0.0-0.7); #Lymphocytes 0.9 thou/uL (1.20-3.40); #Monocytes 0.6 thou/uL (0.11-0.59); #Neutrophils 4.4 thou/uL (1.40-6.50); %Basophils 0.5 % (0.0-1.0); %Eosinophils 1.7 % (0.0-10.0); %Lymphocytes 15.2 % (21.0-51.0); %Monocytes 9.4 % (0.0-10.0); %Neutrophils 73.1 % (42.0-75.0); Hemoglobin 8.1 g/dL (12.0-16.0); Mean Corpuscular Hemoglobin 27.6 pg (27.0-31.0); Platelet Count 142 thou/uL (130-400); RBC Distribution Width 17.2 % (11.5-14.5); Red Blood Cell (RBC) Count 2.95 mill/uL (4.20-5.40)
[2021-07-24 04:56] LABS: ALT (SGPT) 13 U/L (8-55); AST (SGOT) 17 U/L (5-34); Albumin 2.9 g/dL (3.4-4.8); Alkaline Phosphatase 95 U/L (40-110); Anion Gap 10 mmol/L (10-20); BUN (Urea Nitrogen) 25 mg/dL (9.8-20.1); Bilirubin, Total 0.6 mg/dL (0.2-1.2); Calc. Creatinine Clearance 57 mL/min (70-130); Calcium 8.8 mg/dL (7.8-10.44); Carbon Dioxide 27 mmol/L (23-31); Chloride 103 mmol/L (98-107); Globulin 4.3 g/dL (2.4-3.5); Glucose 146 mg/dL (83-110); Potassium 3.9 mmol/L (3.5-5.1); Protein, Total 7.2 g/dL (5.8-8.1); Sodium 136 mmol/L (136-145)
[2021-07-24] MEDS ORDERED: Lidocaine 1% PF 5 ML VIAL ONE (08:16)
[2021-07-24] MEDS ORDERED: PROPOFOL 200 MG/20 ML VIAL ONE (08:16)
[2021-07-24] MEDS ORDERED: Promethazine HCl 25 MG/ML VIAL IVPB PRN (08:40)
[2021-07-24] MEDS ORDERED: Promethazine HCl 25 MG/ML VIAL IM PRN (08:40)
[2021-07-24] MEDS ORDERED: Ondansetron HCl/PF 4 MG/2 ML Vial IVP PRN (08:40)
[2021-07-24] MEDS: Losartan 25 MG TAB PO SCH (10:12)
[2021-07-24] MEDS: Pantoprazole 40 MG VIAL IVP SCH ×2 (10:12→20:57)
[2021-07-24] MEDS: Metoprolol Tartrate 100 MG TAB PO SCH ×2 (10:12→20:56)
[2021-07-24] MEDS ORDERED: Benzonatate 100 MG CAP PO PRN (10:38)
[2021-07-24] MEDS ORDERED: Simethicone Chewable 80 MG TAB PO PRN (13:45)
[2021-07-24] MEDS ORDERED: Transdermal Patch Removal TOP SCH (14:00)
[2021-07-24] MEDS: cefTRIAXone\\ROCEPHIN 1 GM in Sodium Chloride 0.9% 100 ML IVPB SCH (17:16)
[2021-07-24] MEDS ORDERED: Atorvastatin Calcium 40 MG TAB PO SCH (21:00)
[2021-07-25 04:34] LABS: #Eosinphils 0.1 thou/uL (0.0-0.7); #Lymphocytes 1.1 thou/uL (1.20-3.40); #Monocytes 0.6 thou/uL (0.11-0.59); #Neutrophils 4.3 thou/uL (1.40-6.50); %Basophils 0.6 % (0.0-1.0); %Eosinophils 2.1 % (0.0-10.0); %Lymphocytes 17.6 % (21.0-51.0); %Monocytes 9.6 % (0.0-10.0); %Neutrophils 70.1 % (42.0-75.0); Hemoglobin 8.8 g/dL (12.0-16.0); Mean Corpuscular HGB CONC 31.5 g/dL (32.0-36.0); Mean Corpuscular Volume 88.8 fL (78.0-98.0); Mean Platelet Volume 8.8 fL (7.4-10.4); Platelet Count 153 thou/uL (130-400); RBC Distribution Width 17.2 % (11.5-14.5); Red Blood Cell (RBC) Count 3.14 mill/uL (4.20-5.40); White Blood Cell (WBC) Count 6.2 thou/uL (4.8-10.8)
[2021-07-25 04:59] LABS: ALT (SGPT) 14 U/L (8-55); AST (SGOT) 16 U/L (5-34); Albumin 3.1 g/dL (3.4-4.8); Alkaline Phosphatase 102 U/L (40-110); Anion Gap 12 mmol/L (10-20); BUN (Urea Nitrogen) 23 mg/dL (9.8-20.1); Bilirubin, Total 0.7 mg/dL (0.2-1.2); Calc. Creatinine Clearance 60 mL/min (70-130); Carbon Dioxide 26 mmol/L (23-31); Chloride 102 mmol/L (98-107); Globulin 4.7 g/dL (2.4-3.5); Glucose 141 mg/dL (83-110); Protein, Total 7.8 g/dL (5.8-8.1); Sodium 136 mmol/L (136-145)
[2021-07-25] MEDS: HumaLOG 300 UNITS/3 ML VIAL SC PRN (06:34)
[2021-07-25] MEDS ORDERED: Transdermal Patch Removal TOP SCH (08:00)
[2021-07-25] MEDS ORDERED: Folic Acid 1 MG TAB PO SCH (09:00)
[2021-07-25] MEDS ORDERED: Apixaban 5 MG TAB PO SCH (09:00)
[2021-07-25] MEDS ORDERED: Loratadine 10 MG TAB PO SCH (09:00)
[2021-07-25] MEDS ORDERED: Ferrous Sulfate 325 MG TAB PO SCH (09:00)
[2021-07-25] MEDS: Losartan 25 MG TAB PO SCH (09:03)
[2021-07-25] MEDS: Metoprolol Tartrate 100 MG TAB PO SCH (09:03)
[2021-07-25] MEDS: Pantoprazole 40 MG VIAL IVP SCH (09:04)
[2021-07-25 15:25] VITALS: BP 165/77; TEMP 98.6
== END 2021-07-25 16:15 | disposition home or self-care (01) | DRG 432 ==
LOC: ERS 18:02 → 2NO 20:33
PROVIDERS: ADMIT Family Medicine; ATTEND Family Medicine
PROC: 06L38CZ Occlusion of Esophageal Vein with Extraluminal Device, Via Natural or Artificial Opening Endoscopic (ICD-10-PCS; principal; 2021-07-24)
DX: K74.60 Unspecified cirrhosis of liver (principal); I85.11 Secondary esophageal varices with bleeding; K76.6 Portal hypertension; N17.9 Acute kidney failure, unspecified; N18.4 Chronic kidney disease, stage 4 (severe); E11.9 Type 2 diabetes mellitus without complications; I10 Essential (primary) hypertension; E78.5 Hyperlipidemia, unspecified; Z96.651 Presence of right artificial knee joint; I48.91 Unspecified atrial fibrillation; K21.9 Gastro-esophageal reflux disease without esophagitis; R53.81 Other malaise; E89.0 Postprocedural hypothyroidism; K31.89 Other diseases of stomach and duodenum; D50.9 Iron deficiency anemia, unspecified; K29.70 Gastritis, unspecified, without bleeding; Z20.822 Contact with and (suspected) exposure to COVID-19; Z79.4 Long term (current) use of insulin; Z79.01 Long term (current) use of anticoagulants; Z79.899 Other long term (current) drug therapy; Z98.890 Other specified postprocedural states; Z90.49 Acquired absence of other specified parts of digestive tract
CPT/HCPCS: 36415; 36416; 80053; 82274; 82607; 82728; 82746; 83540; 83550; 83605; 85025; 85610; 85730; 86850; 86900; 86901; 87040; 93005; 96365; 96367; 96375; 96376; C9113; J0696; J1815; J2354; J2704; J3490; J7050; J7120; U0003; U0005

== ENCOUNTER 2021-09-30 17:07 | Emergency (ER) | payer OTHER | END 2021-09-30 18:38 | disposition home or self-care (01) | LOC: ERS 17:07 | DX: U07.1 COVID-19 (principal); E11.9 Type 2 diabetes mellitus without complications; I10 Essential (primary) hypertension; Z87.891 Personal history of nicotine dependence; Z79.4 Long term (current) use of insulin; Z79.899 Other long term (current) drug therapy | CPT/HCPCS: 99284; U0003; U0005 ==